=== PATIENT | male | born 1990 | race Caucasian/White ===

== ENCOUNTER 2016-12-19 22:46 | Inpatient (IN) ==
[2016-12-19 23:16] LABS: Basophils % 0.6 %; Eosinophils # 0.1 K/mcL (0.0-0.6); Eosinophils % 1.9 %; Hematocrit 43.9 % (37.5-50.1); Hemoglobin 14.9 g/dL (12.9-16.9); Immature Granulocytes % 0.3 % (0-4); Lymphocytes # 1.1 K/mcL (0.6-4.6); Lymphocytes % 16.6 %; Mean Corpuscular HGB Conc 33.9 g/dL (31.6-35.5); Mean Corpuscular Hemoglobin 27.3 pg (28.0-33.3); Mean Corpuscular Volume 80.6 fL (83.0-100.0); Mean Platelet Volume 9.7 fL (9.4-12.4); Monocytes # 0.4 K/mcL (0.0-1.3); Monocytes % 6.7 %; Neutrophils # 4.7 K/mcL (1.6-8.9); Platelet Count 254 K/mcL (140-400); Red Blood Count 5.45 M/mcL (4.19-5.50); Red Cell Distribution Width 12.1 % (11.5-14.5); Segmented Neutrophils % 73.9 %
[2016-12-19 23:27] LABS: Bilirubin,Urine Negative (Negative); Blood,Urine Negative (Negative); Clarity,Urine Clear (Clear); Color,Urine Yellow (Yellow); Glucose,Urine (UA) Normal (Normal); Ketones,Urine Negative (Negative); Leukocyte Esterase,Urine Negative (Negative); Nitrite,Urine Negative (Negative); PH,Urine 6.5 pH Units (5.0-8.0); Protein,Urine Negative (Neg-Trace); Specific Gravity,Urine 1.023 (1.010-1.025); Urobilinogen,Urine Normal (Normal)
[2016-12-19 23:29] LABS: Amphetamine Screen,Urine Negative ng/mL (Cutoff=1000); Barbiturate Screen,Urine Negative ng/mL (Cutoff=200); Benzodiazepines Screen,Urine Negative ng/mL (Cutoff=200); Cannabinoid Screen,Urine Negative ng/mL (Cutoff = 50); Cocaine Screen,Urine Negative ng/mL (Cutoff= 300); Opiate Screen,Urine Negative ng/mL (Cutoff=300); Phencyclidine Screen,Urine Negative ng/mL (Cutoff=25)
[2016-12-19 23:30] LABS: Acetaminophen < 1.0 mcg/mL (10-30); BUN/Creatinine Ratio 15 (6-26); Blood Urea Nitrogen 14 mg/dL (8-26); Calcium 9.2 mg/dL (8.6-10.8); Carbon Dioxide 27 mEq/L (19-29); Chloride 103 mEq/L (98-109); Ethanol < 10 mg/dL (0-10); Glucose 146 mg/dL (70-99); Osmolality,Calculated 291 (280-300); Potassium 4.1 mEq/L (3.5-4.5); Salicylate < 5.0 mg/dL (15-30); Sodium 139 mEq/L (136-145); eGFR For African Americans > 60 (> 60); eGFR For Non-African Americans > 60 (> 60)
--- NOTE | 2016-12-19 23:36 | Emergency Department Note ---
Disposition Clinical Impression: Suicidal ideation Disposition: Admitted As Inpatient Condition: Good Time of Disposition: 01:31 General Adult HPI - General Chief complaint: ED Psychiatric Symptoms Stated complaint: "SI" Time Seen by Provider: 12/19/16 23:07 Source: patient Limitations: no limitations Nursing Notes Reviewed: Yes Vital Signs Reviewed: Yes - History of Present Illness HPI Narrative: Five-month history of increase in depression. No been superficially cutting the inside portions of his upper extremities. Suicidal ideation with no plan. No homicidal ideation. No hallucinations. Pain Scale: 0 - Related Data Allergies Allergy/AdvReac Type Severity Reaction Status Date / Time No Known Allergies Allergy Verified 12/19/16 22:48 All systems ED: reviewed and negative except as stated. Constitutional: Denies: fever, chills, weight change Eyes: Denies: eye pain, vision change ENT ED: Denies: throat pain, congestion, dysphagia Cardiovascular: Denies: chest pain, syncope Respiratory: Denies: cough, dyspnea Gastrointestinal: Denies: abdominal pain, nausea, vomiting, diarrhea, hematemesis, melena, hematochezia Genitourinary: Denies: urgency, dysuria, frequency, hematuria Musculoskeletal: Denies: back pain, neck pain Integumentary: Denies: rash Neurological: Denies: headache, weakness, numbness Psychiatric: Reports: depression (for 5 months), suicidal thoughts, other (Self- harm to medial aspects of upper arms.). Denies: anxiety, homicidal thoughts, auditory hallucinations, visual hallucinations Past Medical History - Past Medical History Attestation: Yes The following information was validated with the patient. Medical history: Reports: no medical history Psychiatric history: Reports: depression - Social History Smoking Status: Current every day smoker Smokeless Tobacco Status: No Alcohol use: Reports: none Drug use: Reports: none Physical Exam - General Limitations: no limitations General appearance: alert, in no apparent distress - Head Head exam: atraumatic, normocephalic, normal inspection - Eye Eye exam: Present: normal appearance, PERRL, EOMI - ENT ENT exam: normal exam, normal oropharynx, mucous membranes moist, normal external ear exam - Neck Neck exam: Present: normal inspection, full ROM, trachea midline. Absent: tenderness, meningismus, lymphadenopathy - Chest Chest inspection: Present: normal inspection, symmetric chest wall rise. Absent : tenderness, rash - Respiratory Respiratory exam: Present: normal lung sounds bilaterally. Absent: respiratory distress - Cardiovascular Cardiovascular exam: Present: regular rate, normal rhythm, normal heart sounds - Abdominal Exam Abdominal exam: Present: soft, Non-Tender, normal bowel sounds. Absent: tenderness, distention, guarding, rebound, rigidity, organomegaly - Extremities Exam Extremities exam: Present: full ROM, normal capillary refill. Absent: tenderness, pedal edema - Expanded Upper Extremity Exam Shoulder exam: Present: normal inspection, full ROM Arm exam: Present: full ROM, abrasion (Possible superficial abrasions to the inner aspects of both biceps). Absent: tenderness, swelling, ecchymosis, deformity, crepitus, erythema Elbow exam: Present: normal inspection, full ROM Forearm/Wrist exam: Present: normal inspection, full ROM Hand exam: Present: normal inspection, full ROM Vascular exam: Normal: capillary refill, radial pulse - Expanded Lower Extremity Exam Hip/Pelvis exam: Present: normal inspection, full ROM Upper leg exam: Present: normal inspection, full ROM Knee exam: Present: normal inspection, full ROM Lower leg exam: Present: normal inspection, full ROM Ankle exam: Present: normal inspection, full ROM Foot/toe exam: Present: normal inspection, full ROM Neurovascular/Tendon exam: Absent: motor deficit, sensory deficit, tendon deficit - Back Exam Back exam: Present: normal inspection, full ROM. Absent: tenderness, CVA tenderness (R), CVA tenderness (L) - Neurological Exam Neurological exam: Present: alert, oriented X3, normal gait - Psychiatric Psychiatric exam: Present: normal affect, normal mood, suicidal ideation. Absent: homicidal ideation - Skin Skin exam: Present: warm, dry, intact, normal color. Absent: rash Course Course Narrative: Well-appearing male patient presenting to the emergency department with suicidal ideations. He states that he has no SI or HI right now there has been no hallucinations visual or audible. He has been depressed before but has never been treated for this. He states this. Is been going on for 5 months that he has been more depressed and sad than normal. He states he has been doing self-harm and shows me the insides of his arms bilaterally. On his biceps he has several superficial cuts. They are all well-healed none appear infected. There is no erythema or warmth to the area. They are all scabbed over. He denies these on any other part of his body. He states he has been doing self-harm to relieve the depression. When asked if he had suicidal ideation he said he did prior to arrival here. He also states that he did not have a plan however he would do it however he needed to. He has no medical complaints at this time. We will do basic lab workup and consult 1A. - Reevaluation(s) Reevaluation #1: 1 A recommendation is to admit the patient. - Consultations Consultation #1: 1 A is admitting Pt. Time: 01:15 Vital Signs Temperature 97.5 F L 12/19/16 22:49 Pulse Rate 104 12/19/16 22:49 Respiratory Rate 16 12/19/16 22:49 Blood Pressure 168/97 12/19/16 22:49 O2 Sat by Pulse Oximetry 100 12/19/16 22:49 Temperature 98.7 F 12/20/16 02:49 Pulse Rate 87 12/20/16 02:49 Respiratory Rate 18 12/20/16 02:49 Blood Pressure 137/86 12/20/16 02:49 O2 Sat by Pulse Oximetry 98 12/19/16 23:12 Oxygen Delivery Oxygen Delivery Room Air Medical Decision Making - Lab Data Result diagrams: 12/19/16 23:04 12/19/16 23:04 Lab Results 12/19/16 12/19/16 12/19/16 Range/Units 23:04 23:04 23:17 WBC 6.4 (4.3-11.1) K/mcL RBC 5.45 (4.19-5.50) M/mcL Hgb 14.9 (12.9-16.9) g/dL Hct 43.9 (37.5-50.1) % MCV 80.6 L (83.0-100.0) fL MCH 27.3 L (28.0-33.3) pg MCHC 33.9 (31.6-35.5) g/dL RDW 12.1 (11.5-14.5) % Plt Count 254 (140-400) K/mcL MPV 9.7 (9.4-12.4) fL Immature Gran % 0.3 (0-4) % Seg Neutrophils % 73.9 % Lymphocytes % 16.6 % Monocytes % 6.7 % Eosinophils % 1.9 % Basophils % 0.6 % Neutrophils # 4.7 (1.6-8.9) K/mcL Lymphocytes # 1.1 (0.6-4.6) K/mcL Monocytes # 0.4 (0.0-1.3) K/mcL Eosinophils # 0.1 (0.0-0.6) K/mcL Basophils # 0.0 (0.0-0.2) K/mcL Sodium 139 (136-145) mEq/L Potassium 4.1 (3.5-4.5) mEq/L Chloride 103 (98-109) mEq/L Carbon Dioxide 27 (19-29) mEq/L BUN 14 (8-26) mg/dL Creatinine 0.94 (0.72-1.25) mg/dL Est GFR ( Amer) > 60 (> 60) Est GFR (Non-Af Amer) > 60 (> 60) BUN/Creatinine Ratio 15 (6-26) Glucose 146 H (70-99) mg/dL Calculated Osmolality 291 (280-300) Calcium 9.2 (8.6-10.8) mg/dL Urine Color Yellow (Yellow) Urine Clarity Clear (Clear) Urine pH 6.5 (5.0-8.0) pH Units Ur Specific [place] 1.023 (1.010-1.025) Urine Protein Negative (Neg-Trace) mg/dL Urine Glucose (UA) Normal (Normal) mg/dL Urine Ketones Negative (Negative) mg/dL Urine Blood Negative (Negative) Urine Nitrite Negative (Negative) Urine Bilirubin Negative (Negative) Urine Urobilinogen Normal (Normal) mg/dL Ur Leukocyte Esterase Negative (Negative) Salicylates < 5.0 L (15-30) mg/dL Urine Opiates Screen (Okvrix=878) ng/mL Acetaminophen < 1.0 L (10-30) mcg/mL Ur Barbiturates Screen (Nkcsau=801) ng/mL Ur Phencyclidine Scrn (Cutoff=25) ng/mL Ur Amphetamines Screen (Zcuhjc=4884) ng/mL U Benzodiazepines Scrn (Vmhhax=874) ng/mL Urine Cocaine Screen (Cutoff= 300) ng/mL U Marijuana (THC) Screen (Cutoff = 50) ng/mL Ethyl Alcohol < 10 (0-10) mg/dL 12/19/16 Range/Units 23:17 WBC (4.3-11.1) K/mcL RBC (4.19-5.50) M/mcL Hgb (12.9-16.9) g/dL Hct (37.5-50.1) % MCV (83.0-100.0) fL MCH (28.0-33.3) pg MCHC (31.6-35.5) g/dL RDW (11.5-14.5) % Plt Count (140-400) K/mcL MPV (9.4-12.4) fL Immature Gran % (0-4) % Seg Neutrophils % % Lymphocytes % % Monocytes % % Eosinophils % % Basophils % % Neutrophils # (1.6-8.9) K/mcL Lymphocytes # (0.6-4.6) K/mcL Monocytes # (0.0-1.3) K/mcL Eosinophils # (0.0-0.6) K/mcL Basophils # (0.0-0.2) K/mcL Sodium (136-145) mEq/L Potassium (3.5-4.5) mEq/L Chloride (98-109) mEq/L Carbon Dioxide (19-29) mEq/L BUN (8-26) mg/dL Creatinine (0.72-1.25) mg/dL Est GFR ( Amer) (> 60) Est GFR (Non-Af Amer) (> 60) BUN/Creatinine Ratio (6-26) Glucose (70-99) mg/dL Calculated Osmolality (280-300) Calcium (8.6-10.8) mg/dL Urine Color (Yellow) Urine Clarity (Clear) Urine pH (5.0-8.0) pH Units Ur Specific [place] (1.010-1.025) Urine Protein (Neg-Trace) mg/dL Urine Glucose (UA) (Normal) mg/dL Urine Ketones (Negative) mg/dL Urine Blood (Negative) Urine Nitrite (Negative) Urine Bilirubin (Negative) Urine Urobilinogen (Normal) mg/dL Ur Leukocyte Esterase (Negative) Salicylates (15-30) mg/dL Urine Opiates Screen Negative (Ohedbr=964) ng/mL Acetaminophen (10-30) mcg/mL Ur Barbiturates Screen Negative (Guafry=339) ng/mL Ur Phencyclidine Scrn Negative (Cutoff=25) ng/mL Ur Amphetamines Screen Negative (Ywiqfn=0152) ng/mL U Benzodiazepines Scrn Negative (Xesukj=865) ng/mL Urine Cocaine Screen Negative (Cutoff= 300) ng/mL U Marijuana (THC) Screen Negative (Cutoff = 50) ng/mL Ethyl Alcohol (0-10) mg/dL Attestation Statement - Attestation Attestation: I personally interviewed and examined this patient and my medical decision- making was reviewed with the ED Resident Physician, Dr. Marcano. I agree with the documented findings, disposition and treatment plan as described in the documentation. Patient is a 26-year-old white male who presents to the emergency department this evening with suicidal thoughts. Patient has no prior history of diagnosed depression, no prior psychiatric hospitalizations or outpatient therapy, and not on any psychiatric medications. Patient states that he has been having gradually worsening depression past 3-4 months with no specific inciting incident. Patient began cutting himself for relief of his stress over the past week and has multiple superficial abrasions noted to the bilateral upper arms. Patient's never done anything to harm himself in the past. Patient states due to increased stress and worsening depression he is having more frequent suicidal thoughts but no specific plan. Patient denies any medical history and no medications at this time. Patient denies any history of substance abuse. Patient is awake alert and oriented in no acute distress resting comfortably at bedside with stable vital signs. Heart regular rate and rhythm lungs are clear to auscultation bilaterally abdomen is soft nontender nondistended positive bowel sounds is no sinus or edema skin is warm and dry rash or petechiae noted psych patient has appropriate mood and affect at bedside is cooperative with exam and history. Patient does express suicidal thoughts but denies any homicidal ideation, no delusions or hallucinations. Patient's girlfriend is at bedside. At this time we obtained labs for psychiatric evaluation and have contacted the psych nurse to come and do an assessment of the patient. Patient was placed on suicidal precautions. Patient admitted for further psychiatric evaluation and treatment, medically cleared for admission
[2016-12-20] MEDS ORDERED: Nicotine 7 MG PATCH.TD24 TD SCH ×2 (01:30→09:00)
[2016-12-20] MEDS ORDERED: *HR* LORazepam 2 MG/ML VIAL IM PRN (01:50)
[2016-12-20] MEDS ORDERED: Acetaminophen 325 MG TABLET PO PRN (01:50)
[2016-12-20] MEDS ORDERED: Haloperidol Lactate 5 MG/ML VIAL IM PRN (01:50)
[2016-12-20] MEDS ORDERED: traZODone 50 MG TABLET PO PRN (01:50)
[2016-12-20] MEDS ORDERED: Mag Hydrox/Al Hydrox/Simeth 30 ML UDC PO PRN (01:50)
[2016-12-20] MEDS ORDERED: *HR* LORazepam 1 MG TABLET PO PRN (01:50)
[2016-12-20] MEDS ORDERED: hydrOXYzine pamoate 25 MG CAPSULE PO PRN (01:50)
[2016-12-20] MEDS ORDERED: MOM Conc 10 ML UD.LIQ PO PRN (01:50)
[2016-12-20] MEDS: Nicotine 7 MG PATCH.TD24 TD SCH (09:00)
--- NOTE | 2016-12-20 09:50 | Psychiatry History & Physical ---
Date of Encounter: 12/20/16 Time of Encounter: 09:43 History of Present Illness Patient Stated Chief Complaint: Depressed and suicidal Medicare Admission Attestation: For traditional Medicare patients the provided hospital inpatient services are reasonable and necessary and in the case of services not specified as inpatient -only under 42 CFR 419.22 (n), that they are appropriately provided as inpatient services in accordance 42 CFR 412.3. For Critical [facility] the patient may reasonably be expected to be discharged or transferred to a hospital within 96 hours after admission to the Critical [facility]. Admitted From: Emergency Dept History of Present Illness: Mr. Garcia is a 26 year old male admitted from the emergency department for depression and suicidal ideation. Patient stated that he has been experiencing increasing depression for the last 5 months including low energy , crying episodes, feeling of hopelessness and helplessness and suicidal ideation. Patient had no previous treatment for depression or any mental health issues and he is not taking any medication. 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 He denies any substance abuse are "drugs he does not smoke cigarettes and consumes caffeine. He reports occasional self mutilating behavior where he cut himself on the upper arm on both sides and this has been happening for the last few months. Past Med Surg Social Fam HX - Past Medical History Medical history: no medical history - Past Psychiatric History Psychiatric history: Reports: no psych history Family psychiatric history: Unknown Family History of Suicide: Unknown - Past Surgical History Surgical History: no surgical history - Social History Smoking Status: Current every day smoker Smokeless Tobacco Status: No Alcohol use: none Drug use: none Medications & Allergies No Known Home Drugs 12/20/16 [History] Allergies No Known Allergies Allergy (Verified 12/19/16 22:48) Review of Systems Psychiatric: Reports: depression, abnormal sleep pattern, suicidal ideation, hopelessness Mental Status Exam Patient orientation: Yes Person, Yes Time, Yes Place Level of alertness: Alert Patient appearance: Appropriate, Well Groomed Behavior: calm, cooperative, anxious, guarded Psychomotor activity: Normal Eye contact: Maintains Eye Contact Mood description: Depressed, Anxious Affect description: constricted Speech pattern: Normal rate, Normal rhythm, Normal tone Speech volume: Normal Thought process: Linear, Goal Oriented Thought content: Yes Suicidal ideation, No Homicidal ideation, No Overt delusions Perceptual disturbances: No Auditory hallucinations, No Visual hallucinations Attention span: Capable of Focused Attention Memory description: Grossly Intact Patient reliability: Reliable Historian Intelligence estimate: Average Judgment: Limited Insight: Partial Results - Vital Signs Vital signs: Temp Pulse Resp BP Pulse Ox 97.5 F L 94 16 126/84 98 12/20/16 09:00 12/20/16 09:00 12/20/16 09:00 12/20/16 09:00 12/19/16 23:12 - Labs Labs: Laboratory Last Values WBC 6.4 K/mcL (4.3-11.1) 12/19/16 23:04 RBC 5.45 M/mcL (4.19-5.50) 12/19/16 23:04 Hgb 14.9 g/dL (12.9-16.9) 12/19/16 23:04 Hct 43.9 % (37.5-50.1) 12/19/16 23:04 MCV 80.6 fL (83.0-100.0) L 12/19/16 23:04 MCH 27.3 pg (28.0-33.3) L 12/19/16 23:04 MCHC 33.9 g/dL (31.6-35.5) 12/19/16 23:04 RDW 12.1 % (11.5-14.5) 12/19/16 23:04 Plt Count 254 K/mcL (140-400) 12/19/16 23:04 MPV 9.7 fL (9.4-12.4) 12/19/16 23:04 Immature Gran % 0.3 % (0-4) 12/19/16 23:04 Seg Neutrophils % 73.9 % 12/19/16 23:04 Lymphocytes % 16.6 % 12/19/16 23:04 Monocytes % 6.7 % 12/19/16 23:04 Eosinophils % 1.9 % 12/19/16 23:04 Basophils % 0.6 % 12/19/16 23:04 Neutrophils # 4.7 K/mcL (1.6-8.9) 12/19/16 23:04 Lymphocytes # 1.1 K/mcL (0.6-4.6) 12/19/16 23:04 Monocytes # 0.4 K/mcL (0.0-1.3) 12/19/16 23:04 Eosinophils # 0.1 K/mcL (0.0-0.6) 12/19/16 23:04 Basophils # 0.0 K/mcL (0.0-0.2) 12/19/16 23:04 Sodium 139 mEq/L (136-145) 12/19/16 23:04 Potassium 4.1 mEq/L (3.5-4.5) 12/19/16 23:04 Chloride 103 mEq/L (98-109) 12/19/16 23:04 Carbon Dioxide 27 mEq/L (19-29) 12/19/16 23:04 BUN 14 mg/dL (8-26) 12/19/16 23:04 Creatinine 0.94 mg/dL (0.72-1.25) 12/19/16 23:04 Est GFR ( Amer) > 60 (> 60) 12/19/16 23:04 Est GFR (Non-Af Amer) > 60 (> 60) 12/19/16 23:04 BUN/Creatinine Ratio 15 (6-26) 12/19/16 23:04 Glucose 146 mg/dL (70-99) H 12/19/16 23:04 Calculated Osmolality 291 (280-300) 12/19/16 23:04 Calcium 9.2 mg/dL (8.6-10.8) 12/19/16 23:04 Urine Color Yellow (Yellow) 12/19/16 23: Urine Clarity Clear (Clear) 12/19/16 23:17 Urine pH 6.5 pH Units (5.0-8.0) 12/19/16 23:17 Ur Specific [place] 1.023 (1.010-1.025) 12/19/16 23:17 Urine Protein Negative mg/dL (Neg-Trace) 12/19/16 23:17 Urine Glucose (UA) Normal mg/dL (Normal) 12/19/16 23:17 Urine Ketones Negative mg/dL (Negative) 12/19/16 23: Urine Blood Negative (Negative) 12/19/16 23:17 Urine Nitrite Negative (Negative) 12/19/16 23:17 Urine Bilirubin Negative (Negative) 12/19/16 23:17 Urine Urobilinogen Normal mg/dL (Normal) 12/19/16 23:17 Ur Leukocyte Esterase Negative (Negative) 12/19/16 23:17 Salicylates < 5.0 mg/dL (15-30) L 12/19/16 23:04 Urine Opiates Screen Negative ng/mL (Lwdnug=072) 12/19/16 23:17 Acetaminophen < 1.0 mcg/mL (10-30) L 12/19/16 23:04 Ur Barbiturates Screen Negative ng/mL (Dzvcww=103) 12/19/16 23:17 Ur Phencyclidine Scrn Negative ng/mL (Cutoff=25) 12/19/16 23:17 Ur Amphetamines Screen Negative ng/mL (Pdkueo=0081) 12/19/16 23:17 U Benzodiazepines Scrn Negative ng/mL (Xlfevg=023) 12/19/16 23:17 Urine Cocaine Screen Negative ng/mL (Cutoff= 300) 12/19/16 23:17 U Marijuana (THC) Screen Negative ng/mL (Cutoff = 50) 12/19/16 23:17 Ethyl Alcohol < 10 mg/dL (0-10) 12/19/16 23:04 Assessment and Plan (1) Depression, major, single episode, moderate Current visit: Yes Status: Acute Plan: Admit inpatient for safety and stabilization, Close observation, Suicide Precautions per unit protocol, Encourage participation in unit milieu, Group Therapy, Monitor sleep, Monitor appetite Additional Plan: We will start patient on Effexor XR 75 mg daily benefits and side effects were discussed patient is agreeable to start treatment. Risks, benefits, side effects, alternatives discussed w/pt: Yes Patient agreeable to treatment: Yes Estimated Length of Stay (Days): 5
[2016-12-20] MEDS: Venlafaxine XR (24 HR) 75 MG CAP.ER.24H PO SCH (11:06)
[2016-12-20] MEDS ORDERED: Ondansetron 4 MG/2 ML VIAL IM ONE (19:02)
[2016-12-21] MEDS: Nicotine 7 MG PATCH.TD24 TD SCH (08:24)
--- NOTE | 2016-12-21 11:32 | Psychiatry Progress Note ---
Date of Encounter: 12/21/16 Time of Encounter: 11:00 Subjective Interval history: Patient is here for follow-up. He had an episode yesterday of nausea and vomiting and Effexor was held. today he Tell me that his symptoms are related to breakfast not the medicine. Otherwise she slept well ,he is participating in groups and activities and denies any suicidal thoughts and is interested in going back on the Effexor. Review of Systems Psychiatric: Reports: depression, abnormal sleep pattern, suicidal ideation, hopelessness Objective: Exam Patient orientation: Yes Person, Yes Time, Yes Place Level of alertness: Alert Patient appearance: Appropriate, Well Groomed Behavior: calm, cooperative, anxious, guarded Psychomotor activity: Normal Eye contact: Maintains Eye Contact Mood description: Depressed, Anxious Affect description: constricted Speech pattern: Normal rate, Normal rhythm, Normal tone Speech volume: Normal Thought process: Linear, Goal Oriented Thought content: Yes Suicidal ideation, No Homicidal ideation, No Overt delusions Perceptual disturbances: No Auditory hallucinations, No Visual hallucinations Judgment: Limited Insight: Partial Results - Vital Signs Vital Signs: Temp Pulse Resp BP Pulse Ox 98.2 F 96 16 144/96 98 12/21/16 09:00 12/21/16 09:00 12/21/16 09:00 12/21/16 09:00 12/19/16 23:12 Assessment and Plan (1) Depression, major, single episode, moderate Current visit: Yes Status: Acute Plan: Continue hospitalization, Close observation, Suicide Precautions per unit protocol, Encourage participation in unit milieu, Group Therapy, Monitor sleep, Monitor appetite Risks, benefits, side effects, alternatives discussed w/pt: Yes Patient agreeable to treatment: Yes Consult Discharge Plan - Plan Referrals: NO,PCP [Primary Care Provider] -
[2016-12-22] MEDS: Nicotine 7 MG PATCH.TD24 TD SCH (08:52)
[2016-12-22] MEDS: Venlafaxine XR (24 HR) 75 MG CAP.ER.24H PO SCH (08:52)
[2016-12-22 09:29] VITALS: BP 131/86
--- NOTE | 2016-12-22 11:28 | Discharge Summary ---
Date of Encounter: 12/22/16 Time of Encounter: 11:00 Diagnosis - Discharge Diagnosis (1) Depression, major, single episode, moderate Status: Acute Medications - Discharge Medications Prescriptions: Venlafaxine XR (24 HR) [Effexor XR] 75 mg PO DAILY #30 cap.er.24h Venlafaxine XR (24 HR) [Effexor XR] 75 mg PO DAILY #30 cap.er.24h 12/22/16 [Rx] Allergies No Known Allergies Allergy (Verified 12/19/16 22:48) Provider Date of admission: 12/20/16 01:31 Primary care physician: PCP NO Discharging clinician: Jose Mancera Assessment and Plan - Patient/Caregiver Discharge Instructions Activity: resume usual activities as tolerated Diet: regular diet - Follow up Plan Follow up with: [facility] [Outside] - 12/25/16 2:30 pm (The above appointment is with Dr. Vaughn. The counselor in the office, Melina, will contact you directly to set up an appointment.) Functional capacity at discharge: independent ambulation Overall status at discharge: Stable Disposition: Home, Self-Care Hospital Course Hospital course: Mr. Garcia is a 26 year old male admitted from the emergency room for depression and suicidal ideation, this is the first psychiatric admission for this patient. Details of admission please see H&P On the units patient was evaluated and started on Effexor XR 75 mg. He tolerated the medication and denied any side effects, he participated in group activities and his discharge plans were completed by the social sciences professor to allow for therapy and medication follow-up. Prior to discharge patient was medically stable, denied any suicidal ideation and forward to attend therapy with his . - Time Spent with Patient Total time spent providing and/or coordinating discharge services: Greater than 30 minutes Quality - Multiple Antipsychotics Patient discharged on 2 or more antipsychotic medications: No Procedures - Procedures Procedures: Medication Management, Crisis Stabilization, Supportive Therapy, Group Therapy, Psychoeducational Therapy Mental Status Exam - Mental Status Exam Patient orientation: Yes Person, Yes Time, Yes Place Level of alertness: Alert Patient appearance: Appropriate, Well Groomed Behavior: calm, cooperative, anxious, guarded Psychomotor activity: Normal Eye contact: Maintains Eye Contact Mood description: Euthymic/stable, Anxious Affect description: congruent with mood, constricted Speech pattern: Normal rate, Normal rhythm, Normal tone Speech Volume: Normal Thought process: Linear, Goal Oriented Thought Content: No Suicidal ideation, No Homicidal ideation, No Overt delusions Perceptual Disturbances: No Auditory hallucinations, No Visual hallucinations Judgment: Limited Insight: Partial
== END 2016-12-22 15:15 | disposition home or self-care (01) | DRG 751 ==
LOC: EMEROO 22:46 → 1ANU 12-20 01:31
PROVIDERS: ADMIT Psychiatry & Neurology Psychiatry; ATTEND Psychiatry & Neurology Psychiatry

== ENCOUNTER 2017-09-07 08:35 | Observation (INO) ==
[2017-09-07 09:03] LABS: Bilirubin,Urine Negative (Negative); Blood,Urine Negative (Negative); Clarity,Urine Clear (Clear); Color,Urine Yellow (Yellow); Glucose,Urine (UA) Normal (Normal); Ketones,Urine Negative (Negative); Leukocyte Esterase,Urine Negative (Negative); Nitrite,Urine Negative (Negative); PH,Urine 6.5 pH Units (5.0-8.0); Protein,Urine Negative (Neg-Trace); Specific Gravity,Urine > 1.030 (1.010-1.025); Urobilinogen,Urine Normal (Normal)
--- NOTE | 2017-09-07 09:10 | Emergency Department Note ---
Disposition Clinical Impression: Upper GI bleed Disposition: Admitted As Inpatient Condition: Fair General Adult HPI - General Chief complaint: ED Nausea/Vomiting/Diarrhea Stated complaint: vomiting blood Time Seen by Provider: 09/07/17 09:04 Source: patient Limitations: no limitations - History of Present Illness Pain Scale: 4 - Related Data Home Medications Medication Instructions Recorded Confirmed Venlafaxine XR (24 HR) [Effexor XR] 225 mg PO DAILY 06/22/17 09/07/17 Allergies Allergy/AdvReac Type Severity Reaction Status Date / Time No Known Allergies Allergy Verified 09/07/17 10:44 Past Medical History - Past Medical History Medical history: Reports: asthma Surgical history: Reports: no surgical history Psychiatric history: Reports: anxiety, depression - Social History Smoking Status: Former smoker Smokeless Tobacco Status: Yes Alcohol use: Reports: rarely Drug use: Reports: none Physical Exam - General Limitations: no limitations General appearance: alert Course Vital Signs Temperature 98.3 F 09/07/17 08:42 Pulse Rate 125 09/07/17 08:42 Respiratory Rate 16 09/07/17 08:42 Blood Pressure 110/82 09/07/17 08:42 O2 Sat by Pulse Oximetry 98 09/07/17 08:42 Temperature 97.9 F 09/07/17 15:31 Pulse Rate 101 09/07/17 15:31 Respiratory Rate 18 09/07/17 15:31 Blood Pressure 115/67 09/07/17 15:31 O2 Sat by Pulse Oximetry 99 09/07/17 15:31 Oxygen Delivery Oxygen Delivery Room Air Medical Decision Making - Lab Data Result diagrams: 09/07/17 09:25 09/07/17 09:25 Lab Results 09/07/17 09/07/17 09/07/17 Range/Units 08:55 09:21 09:25 WBC 7.9 (4.3-11.1) K/mcL RBC 4.58 (4.19-5.50) M/mcL Hgb 12.8 L (12.9-16.9) g/dL Hct 36.7 L (37.5-50.1) % MCV 80.1 L (83.0-100.0) fL MCH 27.9 L (28.0-33.3) pg MCHC 34.9 (31.6-35.5) g/dL RDW 12.8 (11.5-14.5) % Plt Count 260 (140-400) K/mcL MPV 9.5 (9.4-12.4) fL Immature Gran % 0.4 (0-4) % Seg Neutrophils % 70.2 % Lymphocytes % 19.3 % Monocytes % 8.7 % Eosinophils % 1.0 % Basophils % 0.4 % Neutrophils # 5.6 (1.6-8.9) K/mcL Lymphocytes # 1.5 (0.6-4.6) K/mcL Monocytes # 0.7 (0.0-1.3) K/mcL Eosinophils # 0.1 (0.0-0.6) K/mcL Basophils # 0.0 (0.0-0.2) K/mcL PT (9.4-12.1) Seconds INR APTT (26.0-36.0) Seconds Sodium (136-145) mEq/L Potassium (3.5-4.5) mEq/L Chloride (98-109) mEq/L Carbon Dioxide (19-29) mEq/L BUN (8-26) mg/dL Creatinine (0.72-1.25) mg/dL Est GFR ( Amer) (> 60) Est GFR (Non-Af Amer) (> 60) BUN/Creatinine Ratio (6-26) Glucose (70-99) mg/dL Calculated Osmolality (280-300) Lactic Acid (0.5-2.2) mmol/L Calcium (8.6-10.8) mg/dL Total Bilirubin (0.2-1.2) mg/dL AST (5-34) Units/L ALT (0-55) Units/L Alkaline Phosphatase (38-126) Units/L Serum Total Protein (6.0-8.3) g/dL Albumin (3.5-5.0) g/dL Globulin (2.4-3.5) g/dL Albumin/Globulin Ratio (1.1-2.2) Lipase (8-78) Units/L Urine Color Yellow (Yellow) Urine Clarity Clear (Clear) Urine pH 6.5 (5.0-8.0) pH Units Ur Specific [place] > 1.030 H (1.010-1.025) Urine Protein Negative (Neg-Trace) mg/dL Urine Glucose (UA) Normal (Normal) mg/dL Urine Ketones Negative (Negative) mg/dL Urine Blood Negative (Negative) Urine Nitrite Negative (Negative) Urine Bilirubin Negative (Negative) Urine Urobilinogen Normal (Normal) mg/dL Ur Leukocyte Esterase Negative (Negative) Ur Culture Indicated? NO (NO) Stool Occult Blood Negative (Negative) Blood Type Antibody Screen 09/07/17 09/07/17 09/07/17 Range/Units 09:25 09:25 09:25 WBC (4.3-11.1) K/mcL RBC (4.19-5.50) M/mcL Hgb (12.9-16.9) g/dL Hct (37.5-50.1) % MCV (83.0-100.0) fL MCH (28.0-33.3) pg MCHC (31.6-35.5) g/dL RDW (11.5-14.5) % Plt Count (140-400) K/mcL MPV (9.4-12.4) fL Immature Gran % (0-4) % Seg Neutrophils % % Lymphocytes % % Monocytes % % Eosinophils % % Basophils % % Neutrophils # (1.6-8.9) K/mcL Lymphocytes # (0.6-4.6) K/mcL Monocytes # (0.0-1.3) K/mcL Eosinophils # (0.0-0.6) K/mcL Basophils # (0.0-0.2) K/mcL PT 12.4 H (9.4-12.1) Seconds INR 1.1 APTT 23.5 L (26.0-36.0) Seconds Sodium 140 (136-145) mEq/L Potassium 4.0 (3.5-4.5) mEq/L Chloride 105 (98-109) mEq/L Carbon Dioxide 29 (19-29) mEq/L BUN 41 H (8-26) mg/dL Creatinine 0.84 (0.72-1.25) mg/dL Est GFR ( Amer) > 60 (> 60) Est GFR (Non-Af Amer) > 60 (> 60) BUN/Creatinine Ratio 49 H (6-26) Glucose 100 H (70-99) mg/dL Calculated Osmolality 300 (280-300) Lactic Acid 1.3 (0.5-2.2) mmol/L Calcium 8.7 (8.6-10.8) mg/dL Total Bilirubin 0.6 (0.2-1.2) mg/dL AST 12 (5-34) Units/L ALT 11 (0-55) Units/L Alkaline Phosphatase 38 (38-126) Units/L Serum Total Protein 6.7 (6.0-8.3) g/dL Albumin 3.8 (3.5-5.0) g/dL Globulin 2.9 (2.4-3.5) g/dL Albumin/Globulin Ratio 1.3 (1.1-2.2) Lipase 20 (8-78) Units/L Urine Color (Yellow) Urine Clarity (Clear) Urine pH (5.0-8.0) pH Units Ur Specific [place] (1.010-1.025) Urine Protein (Neg-Trace) mg/dL Urine Glucose (UA) (Normal) mg/dL Urine Ketones (Negative) mg/dL Urine Blood (Negative) Urine Nitrite (Negative) Urine Bilirubin (Negative) Urine Urobilinogen (Normal) mg/dL Ur Leukocyte Esterase (Negative) Ur Culture Indicated? (NO) Stool Occult Blood (Negative) Blood Type Antibody Screen 09/07/17 Range/Units 09:25 WBC (4.3-11.1) K/mcL RBC (4.19-5.50) M/mcL Hgb (12.9-16.9) g/dL Hct (37.5-50.1) % MCV (83.0-100.0) fL MCH (28.0-33.3) pg MCHC (31.6-35.5) g/dL RDW (11.5-14.5) % Plt Count (140-400) K/mcL MPV (9.4-12.4) fL Immature Gran % (0-4) % Seg Neutrophils % % Lymphocytes % % Monocytes % % Eosinophils % % Basophils % % Neutrophils # (1.6-8.9) K/mcL Lymphocytes # (0.6-4.6) K/mcL Monocytes # (0.0-1.3) K/mcL Eosinophils # (0.0-0.6) K/mcL Basophils # (0.0-0.2) K/mcL PT (9.4-12.1) Seconds INR APTT (26.0-36.0) Seconds Sodium (136-145) mEq/L Potassium (3.5-4.5) mEq/L Chloride (98-109) mEq/L Carbon Dioxide (19-29) mEq/L BUN (8-26) mg/dL Creatinine (0.72-1.25) mg/dL Est GFR ( Amer) (> 60) Est GFR (Non-Af Amer) (> 60) BUN/Creatinine Ratio (6-26) Glucose (70-99) mg/dL Calculated Osmolality (280-300) Lactic Acid (0.5-2.2) mmol/L Calcium (8.6-10.8) mg/dL Total Bilirubin (0.2-1.2) mg/dL AST (5-34) Units/L ALT (0-55) Units/L Alkaline Phosphatase (38-126) Units/L Serum Total Protein (6.0-8.3) g/dL Albumin (3.5-5.0) g/dL Globulin (2.4-3.5) g/dL Albumin/Globulin Ratio (1.1-2.2) Lipase (8-78) Units/L Urine Color (Yellow) Urine Clarity (Clear) Urine pH (5.0-8.0) pH Units Ur Specific [place] (1.010-1.025) Urine Protein (Neg-Trace) mg/dL Urine Glucose (UA) (Normal) mg/dL Urine Ketones (Negative) mg/dL Urine Blood (Negative) Urine Nitrite (Negative) Urine Bilirubin (Negative) Urine Urobilinogen (Normal) mg/dL Ur Leukocyte Esterase (Negative) Ur Culture Indicated? (NO) Stool Occult Blood (Negative) Blood Type A POSITIVE Antibody Screen NEGATIVE Attestation Statement - Attestation Attestation: I examined this patient and my medical decision-making was reviewed with the Resident Physician. I agree with the documented findings, disposition and treatment plan as described except to the extent set forth below. [id number] time provided Patient presents with nausea and vomiting. He did have an episode of hematemesis earlier today. He is tachycardic at triage but does not appear in any acute distress on exam
[2017-09-07] MEDS ORDERED: Pantoprazole 40 MG VIAL IVP ONE (09:12)
[2017-09-07] MEDS ORDERED: 0.9 % Sodium Chloride 1,000 ML IVC ONE (09:12)
--- NOTE | 2017-09-07 09:32 | Emergency Department Note ---
Disposition Clinical Impression: Upper GI bleed Disposition: Admitted As Inpatient Condition: Fair Referrals: Luly Kolb DO [Primary Care Provider] - Forms: ED Satisfaction Letter Time of Disposition: 10:36 General Adult HPI - General Chief complaint: ED Nausea/Vomiting/Diarrhea Stated complaint: vomiting blood Time Seen by Provider: 09/07/17 09:04 Source: patient Mode of arrival: ambulatory Limitations: no limitations Nursing Notes Reviewed: Yes Vital Signs Reviewed: Yes - History of Present Illness HPI Narrative: 27-year-old male presenting to emergency Department chief complaint of vomiting blood. Patient states for the past 2 days he has had mild abdominal pain and vomiting. He noticed last night in the shower that he was vomiting dark colored vomit and then he vomited a large blood clot. Patient denies any history of GI bleed. Patient denies any alcohol ingestion. He does state he uses a vaporizer. Patient denies excessive NSAID use. Patient denies fever, chest pain or shortness of breath. He is tachycardic in the room. Patient denies any significant past medical history. He does state last night he had a dark colored bowel movement as well. Pain Scale: 4 - Related Data Home Medications Medication Instructions Recorded Confirmed Venlafaxine XR (24 HR) [Effexor XR] 225 mg PO DAILY 06/22/17 06/22/17 Previous Rx's Medication Instructions Recorded Amoxicillin/Clavulanate [Augmentin] 875 mg PO BIDWM 10 Days tablet 06/23/17 Omeprazole [PriLOSEC] 20 mg PO DAILY #15 cap 06/23/17 predniSONE [PredniSONE] 40 mg PO DAILY #10 tablet 06/23/17 Allergies Allergy/AdvReac Type Severity Reaction Status Date / Time No Known Allergies Allergy Verified 12/19/16 22:48 All systems ED: reviewed and negative except as stated. Constitutional: Denies: fever, chills, weakness Eyes: Reports: as per HPI ENT ED: Reports: as per HPI Cardiovascular: Denies: chest pain, palpitations Respiratory: Denies: cough, dyspnea, wheezes Gastrointestinal: Reports: abdominal pain, nausea, vomiting, hematemesis, melena Genitourinary: Reports: as per HPI Musculoskeletal: Reports: as per HPI Integumentary: Denies: rash, abrasion, lesions Neurological: Reports: as per HPI Psychiatric: Reports: as per HPI Endocrine: Reports: as per HPI Hematological/Lymphatic: Reports: as per HPI Allergic/Immunologic: Reports: as per HPI Past Medical History - Past Medical History Attestation: Yes The following information was validated with the patient. Medical history: Reports: asthma Surgical history: Reports: no surgical history Psychiatric history: Reports: anxiety, depression - Social History Smoking Status: Former smoker Smokeless Tobacco Status: Yes Alcohol use: Reports: rarely Drug use: Reports: none Physical Exam - General Limitations: no limitations General appearance: alert, in no apparent distress - Head Head exam: atraumatic, normocephalic, normal inspection - Eye Eye exam: Present: normal appearance. Absent: scleral icterus, conjunctival injection - ENT ENT exam: normal exam, mucous membranes moist - Chest Chest inspection: Present: normal inspection, symmetric chest wall rise. Absent : tenderness, rash - Respiratory Respiratory exam: Present: normal lung sounds bilaterally. Absent: respiratory distress, wheezes - Cardiovascular Cardiovascular exam: Present: normal rhythm, tachycardia, normal heart sounds - Abdominal Exam Abdominal exam: Present: soft, Non-Tender, normal bowel sounds. Absent: distention, guarding, rebound, rigidity, Knapp's sign, Rovsing's sign, tenderness at McBurney's Point - Rectal Exam Rectal exam: Present: normal inspection, normal rectal tone. Absent: hemorrhoids, mass - Extremities Exam Extremities exam: Present: normal inspection, full ROM - Back Exam Back exam: Present: normal inspection - Neurological Exam Neurological exam: Present: alert, oriented X3 - Psychiatric Psychiatric exam: Present: normal affect, normal mood - Skin Skin exam: Present: warm, intact Course Course Narrative: 27-year-old male presenting to the emergency department with concern for GI bleed. Patient states he vomited a large blood clot this morning. Patient denies any history of varices or any excessive drinking. Patient also denies any NSAID use. Patient's physical exam shows tachycardia but otherwise within normal limits. Abdominal exam is benign. Patient's alert and oriented 3 in the room. He is stable beyond the tachycardia. We will obtain a GI bleed being workup including CBC, type and screen, EKG and stool occult. Disposition pending these results. Patient agrees this plan. - Reevaluation(s) Reevaluation #1: Patient stool occult Negative although the BUN is elevated and the hemoglobin is lower than in June and anemic now. Concern for upper GI bleed at this time. Patient was tachycardic upon presentation. Still tachycardic while receiving fluids with heart rate in the low 100s. I spoke with the hospitalist on-call Dr. Gar who would like us to also speak with the endoscopy on-call physician Dr. dudley to ensure possibility for emergent endoscopy if admitted. I spoke with Dr. Dudley who agrees to see the patient. I spoke with Dr. Gar again who agrees to accept the patient at this time. She would like us to place another large bore IV. We will do this at this time and admit the patient to the floor. Time: 10:36 Vital Signs Temperature 98.3 F 09/07/17 08:42 Pulse Rate 125 09/07/17 08:42 Respiratory Rate 16 09/07/17 08:42 Blood Pressure 110/82 09/07/17 08:42 O2 Sat by Pulse Oximetry 98 09/07/17 08:42 Temperature 98.3 F 09/07/17 08:42 Pulse Rate 125 09/07/17 08:42 Respiratory Rate 16 09/07/17 08:42 Blood Pressure 110/82 09/07/17 08:42 O2 Sat by Pulse Oximetry 96 09/07/17 09:14 Oxygen Delivery Oxygen Delivery Room Air Medical Decision Making - Lab Data Result diagrams: 09/07/17 09:25 09/07/17 09:25 Lab Results 09/07/17 09/07/17 09/07/17 Range/Units 08:55 09:21 09:25 WBC 7.9 (4.3-11.1) K/mcL RBC 4.58 (4.19-5.50) M/mcL Hgb 12.8 L (12.9-16.9) g/dL Hct 36.7 L (37.5-50.1) % MCV 80.1 L (83.0-100.0) fL MCH 27.9 L (28.0-33.3) pg MCHC 34.9 (31.6-35.5) g/dL RDW 12.8 (11.5-14.5) % Plt Count 260 (140-400) K/mcL MPV 9.5 (9.4-12.4) fL Immature Gran % 0.4 (0-4) % Seg Neutrophils % 70.2 % Lymphocytes % 19.3 % Monocytes % 8.7 % Eosinophils % 1.0 % Basophils % 0.4 % Neutrophils # 5.6 (1.6-8.9) K/mcL Lymphocytes # 1.5 (0.6-4.6) K/mcL Monocytes # 0.7 (0.0-1.3) K/mcL Eosinophils # 0.1 (0.0-0.6) K/mcL Basophils # 0.0 (0.0-0.2) K/mcL PT (9.4-12.1) Seconds INR APTT (26.0-36.0) Seconds Sodium (136-145) mEq/L Potassium (3.5-4.5) mEq/L Chloride (98-109) mEq/L Carbon Dioxide (19-29) mEq/L BUN (8-26) mg/dL Creatinine (0.72-1.25) mg/dL Est GFR ( Amer) (> 60) Est GFR (Non-Af Amer) (> 60) BUN/Creatinine Ratio (6-26) Glucose (70-99) mg/dL Calculated Osmolality (280-300) Lactic Acid (0.5-2.2) mmol/L Calcium (8.6-10.8) mg/dL Total Bilirubin (0.2-1.2) mg/dL AST (5-34) Units/L ALT (0-55) Units/L Alkaline Phosphatase (38-126) Units/L Serum Total Protein (6.0-8.3) g/dL Albumin (3.5-5.0) g/dL Globulin (2.4-3.5) g/dL Albumin/Globulin Ratio (1.1-2.2) Lipase (8-78) Units/L Urine Color Yellow (Yellow) Urine Clarity Clear (Clear) Urine pH 6.5 (5.0-8.0) pH Units Ur Specific [place] > 1.030 H (1.010-1.025) Urine Protein Negative (Neg-Trace) mg/dL Urine Glucose (UA) Normal (Normal) mg/dL Urine Ketones Negative (Negative) mg/dL Urine Blood Negative (Negative) Urine Nitrite Negative (Negative) Urine Bilirubin Negative (Negative) Urine Urobilinogen Normal (Normal) mg/dL Ur Leukocyte Esterase Negative (Negative) Ur Culture Indicated? NO (NO) Stool Occult Blood Negative (Negative) Blood Type Antibody Screen 09/07/17 09/07/17 09/07/17 Range/Units 09:25 09:25 09:25 WBC (4.3-11.1) K/mcL RBC (4.19-5.50) M/mcL Hgb (12.9-16.9) g/dL Hct (37.5-50.1) % MCV (83.0-100.0) fL MCH (28.0-33.3) pg MCHC (31.6-35.5) g/dL RDW (11.5-14.5) % Plt Count (140-400) K/mcL MPV (9.4-12.4) fL Immature Gran % (0-4) % Seg Neutrophils % % Lymphocytes % % Monocytes % % Eosinophils % % Basophils % % Neutrophils # (1.6-8.9) K/mcL Lymphocytes # (0.6-4.6) K/mcL Monocytes # (0.0-1.3) K/mcL Eosinophils # (0.0-0.6) K/mcL Basophils # (0.0-0.2) K/mcL PT 12.4 H (9.4-12.1) Seconds INR 1.1 APTT 23.5 L (26.0-36.0) Seconds Sodium 140 (136-145) mEq/L Potassium 4.0 (3.5-4.5) mEq/L Chloride 105 (98-109) mEq/L Carbon Dioxide 29 (19-29) mEq/L BUN 41 H (8-26) mg/dL Creatinine 0.84 (0.72-1.25) mg/dL Est GFR ( Amer) > 60 (> 60) Est GFR (Non-Af Amer) > 60 (> 60) BUN/Creatinine Ratio 49 H (6-26) Glucose 100 H (70-99) mg/dL Calculated Osmolality 300 (280-300) Lactic Acid 1.3 (0.5-2.2) mmol/L Calcium 8.7 (8.6-10.8) mg/dL Total Bilirubin 0.6 (0.2-1.2) mg/dL AST 12 (5-34) Units/L ALT 11 (0-55) Units/L Alkaline Phosphatase 38 (38-126) Units/L Serum Total Protein 6.7 (6.0-8.3) g/dL Albumin 3.8 (3.5-5.0) g/dL Globulin 2.9 (2.4-3.5) g/dL Albumin/Globulin Ratio 1.3 (1.1-2.2) Lipase 20 (8-78) Units/L Urine Color (Yellow) Urine Clarity (Clear) Urine pH (5.0-8.0) pH Units Ur Specific [place] (1.010-1.025) Urine Protein (Neg-Trace) mg/dL Urine Glucose (UA) (Normal) mg/dL Urine Ketones (Negative) mg/dL Urine Blood (Negative) Urine Nitrite (Negative) Urine Bilirubin (Negative) Urine Urobilinogen (Normal) mg/dL Ur Leukocyte Esterase (Negative) Ur Culture Indicated? (NO) Stool Occult Blood (Negative) Blood Type Antibody Screen 09/07/17 Range/Units 09:25 WBC (4.3-11.1) K/mcL RBC (4.19-5.50) M/mcL Hgb (12.9-16.9) g/dL Hct (37.5-50.1) % MCV (83.0-100.0) fL MCH (28.0-33.3) pg MCHC (31.6-35.5) g/dL RDW (11.5-14.5) % Plt Count (140-400) K/mcL MPV (9.4-12.4) fL Immature Gran % (0-4) % Seg Neutrophils % % Lymphocytes % % Monocytes % % Eosinophils % % Basophils % % Neutrophils # (1.6-8.9) K/mcL Lymphocytes # (0.6-4.6) K/mcL Monocytes # (0.0-1.3) K/mcL Eosinophils # (0.0-0.6) K/mcL Basophils # (0.0-0.2) K/mcL PT (9.4-12.1) Seconds INR APTT (26.0-36.0) Seconds Sodium (136-145) mEq/L Potassium (3.5-4.5) mEq/L Chloride (98-109) mEq/L Carbon Dioxide (19-29) mEq/L BUN (8-26) mg/dL Creatinine (0.72-1.25) mg/dL Est GFR ( Amer) (> 60) Est GFR (Non-Af Amer) (> 60) BUN/Creatinine Ratio (6-26) Glucose (70-99) mg/dL Calculated Osmolality (280-300) Lactic Acid (0.5-2.2) mmol/L Calcium (8.6-10.8) mg/dL Total Bilirubin (0.2-1.2) mg/dL AST (5-34) Units/L ALT (0-55) Units/L Alkaline Phosphatase (38-126) Units/L Serum Total Protein (6.0-8.3) g/dL Albumin (3.5-5.0) g/dL Globulin (2.4-3.5) g/dL Albumin/Globulin Ratio (1.1-2.2) Lipase (8-78) Units/L Urine Color (Yellow) Urine Clarity (Clear) Urine pH (5.0-8.0) pH Units Ur Specific [place] (1.010-1.025) Urine Protein (Neg-Trace) mg/dL Urine Glucose (UA) (Normal) mg/dL Urine Ketones (Negative) mg/dL Urine Blood (Negative) Urine Nitrite (Negative) Urine Bilirubin (Negative) Urine Urobilinogen (Normal) mg/dL Ur Leukocyte Esterase (Negative) Ur Culture Indicated? (NO) Stool Occult Blood (Negative) Blood Type A POSITIVE Antibody Screen NEGATIVE - EKG Data EKG #1 EKG attestation: Yes I reviewed and interpreted this EKG. EKG results narrative: Sinus tachycardia. 113 bpm. WI interval 104, QRS 102, QTC 370. No signs of acute ST segment elevation or ischemia. Compared to previous EKG completed on 12/16/2011 no significant changes noted.
[2017-09-07 09:37] LABS: INR 1.1; Prothrombin Time 12.4 Seconds (9.4-12.1)
[2017-09-07 09:38] LABS: Basophils % 0.4 %; Eosinophils # 0.1 K/mcL (0.0-0.6); Hematocrit 36.7 % (37.5-50.1); Hemoglobin 12.8 g/dL (12.9-16.9); Immature Granulocytes % 0.4 % (0-4); Lymphocytes # 1.5 K/mcL (0.6-4.6); Lymphocytes % 19.3 %; Mean Corpuscular HGB Conc 34.9 g/dL (31.6-35.5); Mean Corpuscular Hemoglobin 27.9 pg (28.0-33.3); Mean Corpuscular Volume 80.1 fL (83.0-100.0); Mean Platelet Volume 9.5 fL (9.4-12.4); Monocytes # 0.7 K/mcL (0.0-1.3); Monocytes % 8.7 %; Neutrophils # 5.6 K/mcL (1.6-8.9); Platelet Count 260 K/mcL (140-400); Red Blood Count 4.58 M/mcL (4.19-5.50); Red Cell Distribution Width 12.8 % (11.5-14.5); Segmented Neutrophils % 70.2 %
[2017-09-07 09:40] LABS: Activated Partial Thrombo Time 23.5 Seconds (26.0-36.0)
[2017-09-07 09:47] LABS: Alanine Aminotransferase 11 Units/L (0-55); Albumin 3.8 g/dL (3.5-5.0); Albumin/Globulin Ratio 1.3 (1.1-2.2); Alkaline Phosphatase 38 Units/L (38-126); Aspartate Amino Transferase 12 Units/L (5-34); BUN/Creatinine Ratio 49 (6-26); Bilirubin,Total 0.6 mg/dL (0.2-1.2); Blood Urea Nitrogen 41 mg/dL (8-26); Calcium 8.7 mg/dL (8.6-10.8); Carbon Dioxide 29 mEq/L (19-29); Chloride 105 mEq/L (98-109); Globulin 2.9 g/dL (2.4-3.5); Glucose 100 mg/dL (70-99); Lipase 20 Units/L (8-78); Osmolality,Calculated 300 (280-300); Sodium 140 mEq/L (136-145); Total Protein 6.7 g/dL (6.0-8.3); eGFR For African Americans > 60 (> 60); eGFR For Non-African Americans > 60 (> 60)
--- NOTE | 2017-09-07 11:13 | Internal Medicine Consult Note ---
Date of Encounter: 09/07/17 Time of Encounter: 11:09 - Assessment and Plan (1) Upper GI bleed Current Visit: Yes Status: Acute Assessment and plan: Differential to include Thelma-Umer Tear, PUDx or Esophagitis. Have discussed risks and benefits of EGD and will provide AM of the 25th.. There are no other alternatives in testing. He has signed consent. PPI IV today and Ice Chips. Internal Medicine - CN: HPI - Data of Consult Patient: new to practice - Consult Narrative Reason for consult: Upper GI bleeding History of present illness: Mr. Garcia is a 27 year old male seen in the emergency room at the request of the hospitalist service. He admits in the last 2 days nausea, then early this morning, proceeded bloody emesis with a blood clot. No GERD or abdominal pain. Feels better during our initial evaluation. Stools were somewhat dark, past two days. No previous GI bleeding, or abd. surgery. Has not been losing wt. Past Med Surg Social Fam HX - Past Medical History Medical history: asthma Psychiatric history: anxiety, depression - Past Surgical History Surgical History: no surgical history - Social History Smoking Status: Former smoker Smokeless Tobacco Status: Yes Alcohol use: rarely Drug use: none - Family History Mother Living Status: Still Living Hx Family Endocrine Disorder: Yes (DM) Father Living Status: Still Living Hx Family Cardiac Disorders: Yes (HTN, bradycardia) - Constitutional Constitutional: no chills, no fatigue, no fever(s), no weight gain, no weight loss - Cardiovascular Cardiovascular ROS IM: no chest pain, no diaphoresis, no lightheadedness, no palpitations - Respiratory Respiratory: no cough, no hemoptysis, no dyspnea on exertion, no wheezing - Gastrointestinal Gastrointestinal: hematemesis, melena, nausea, no abdominal pain, no early satiety, no hematochezia, no loose stools Internal Medicine - CN: Meds Venlafaxine XR (24 HR) [Effexor XR] 225 mg PO DAILY 06/22/17 [History] 3 Allergy/AdvReac Type Severity Reaction Status Date / Time No Known Allergies Allergy Verified 09/07/17 10:44 Internal Medicine - CN: Exam - Constitutional Vitals: Temp Pulse Resp BP Pulse Ox 98.3 F 93 14 118/73 95 09/07/17 08:42 09/07/17 10:33 09/07/17 10:33 09/07/17 10:33 09/07/17 10:33 General appearance IM: Present: A&O X 3, pleasant, answers questions appropriately. Absent: mild distress, loss of weight - Eye Eye exam: Present: EOMI, PERRL, conjuntiva pink, sclera anicteric - ENT ENT exam: Present: mucous membranes moist - Neck Neck exam general surgery: Present: full ROM, normal inspection, supple, trachea midline - Respiratory Respiratory exam: Present: CTAB - Cardiovascular Cardiovascular exam IM: Present: RRR, +S1, +S2, tachycardia - GI/Abdominal GI/Abdominal exam IM: Present: normal bowel sounds, soft, no peritoneal signs. Absent: firm, guarding, hernia, mass, rebound, tenderness - Rectal Rectal exam: Present: deferred Additional comments: Hemmocult neg. per ED Internal Medicine - CN: Reslt - Labs CBC & Chem 7: 09/07/17 09:25 09/07/17 09:25 Labs: Short CBC 09/07/17 Range/Units 09:25 WBC 7.9 (4.3-11.1) K/mcL Hgb 12.8 L (12.9-16.9) g/dL Hct 36.7 L (37.5-50.1) % Plt Count 260 (140-400) K/mcL Neutrophils # 5.6 (1.6-8.9) K/mcL BMP 09/07/17 09:25 Sodium 140 Potassium 4.0 Chloride 105 Carbon Dioxide 29 BUN 41 H Creatinine 0.84 Glucose 100 H Calcium 8.7 Liver Function 09/07/17 Range/Units 09:25 Total Bilirubin 0.6 (0.2-1.2) mg/dL AST 12 (5-34) Units/L ALT 11 (0-55) Units/L Alkaline Phosphatase 38 (38-126) Units/L Albumin 3.8 (3.5-5.0) g/dL Urine 09/07/17 Range/Units 08:55 Urine Color Yellow (Yellow) Urine Clarity Clear (Clear) Urine pH 6.5 (5.0-8.0) pH Units Ur Specific [place] > 1.030 H (1.010-1.025) Urine Protein Negative (Neg-Trace) mg/dL Urine Glucose (UA) Normal (Normal) mg/dL - ABG Interpretation ABG results: PT/INR, D-dimer PT 12.4 Seconds (9.4-12.1) H 09/07/17 09:25 Consult Discharge Plan - Plan Referrals: Luly Kolb DO [Primary Care Provider] -
[2017-09-07] MEDS ORDERED: Pantoprazole 40 MG in 0.9 % Sodium Chloride Mini Bag 100 ML IVC SCH (11:30)
[2017-09-07] MEDS ORDERED: Naloxone 0.4 MG/ML INJ IVP PRN (11:32)
[2017-09-07] MEDS ORDERED: Ondansetron 4 MG/2 ML VIAL IVP PRN (11:33)
[2017-09-07] MEDS ORDERED: 0.9 % Sodium Chloride 1,000 ML IVC SCH (11:45)
--- NOTE | 2017-09-07 11:55 | Internal Med History&Physical ---
<Nunu Caceres - Last Filed: 09/07/17 12:11> Date of Encounter: 09/07/17 Time of Encounter: 11:51 Assessment and Plan (1) Upper GI bleed Current visit: Yes Status: Acute 1 patient has been experiencing her hematemesis mellitus stools and abdominal pain for the past 2 days. No history of GI bleeding the past. Hemoccult was negative. We did consult Dr. Gutierrez who will perform EGD tomorrow. Nothing by mouth Protonix drip We will give IV fluids (2) Tobacco dependence Current visit: No Status: Acute Encouraged patient to stop smoking (3) DVT prophylaxis Current visit: Yes Status: Acute CLOTILDE johnson Internal Medicine - H&P: HPI Chief complaint: abd pain and hematemesis Admitted From: Emergency Dept Plans for Post Hospital Care: Home History of present illness: Mr. Garcia is a 27 year old male with no past medical history. According to patient over the past 2 days nausea whenever he eats he begins to have abdominal pain which results in vomiting. Pain is relieved after vomiting. Early this morning he did have a episode of bloody emesis with a blood clot. He also has been experiencing melenic stools over the past 2 days. He denies any NSAID use, alcohol consumption previous GI bleed or abdominal surgeries. Denies any unusual weight loss or weight gain. He presented to the ER with the above complaints stool Hemoccult was negative. Hemoglobin was down from previous, ER physician did speak with Dr. Gutierrez who will perform endoscopy tomorrow. Presently patient denies any pain or discomfort no signs and symptoms of active bleeding and he is hemodynamically stable. I review this case with Dr Tan who agrees with plan. Past Med Surg Social Fam HX - Past Medical History Medical history: asthma Psychiatric history: anxiety, depression - Past Surgical History Surgical History: no surgical history - Social History Smoking Status: Former smoker Smokeless Tobacco Status: Yes Alcohol use: rarely Drug use: none - Family History Mother Living Status: Still Living Hx Family Endocrine Disorder: Yes (DM) Father Living Status: Still Living Hx Family Cardiac Disorders: Yes (HTN, bradycardia) Internal Medicine - H&P: Meds Venlafaxine XR (24 HR) [Effexor XR] 225 mg PO DAILY 06/22/17 [History] 3 Allergy/AdvReac Type Severity Reaction Status Date / Time No Known Allergies Allergy Verified 09/07/17 10:44 All Systems PM: A 10-system review of systems was performed and is negative for pertinent findings except as documented above in the HPI. - Constitutional Constitutional: no chills, no fever(s), no night sweats - EENT Eyes: no change in vision, no discharge, no pain, no photophobia Nose, mouth and throat: no dysphagia, no nasal discharge, no neck pain, no sore throat - Cardiovascular Cardiovascular ROS IM: no chest pain, no diaphoresis, no dyspnea, no lightheadedness, no palpitations, no syncope - Respiratory Respiratory: no cough, no dyspnea, no wheezing, no excessive phlegm production - Gastrointestinal Gastrointestinal: abdominal pain, hematemesis, melena, nausea, vomiting, no diarrhea, no hematochezia - Musculoskeletal Musculoskeletal ROS IM: no numbness, no tingling - Integumentary Integumentary IM: no rash, no unusual bruising - Neurological Neurological ROS: no confusion, no convulsions, no focal weakness, no numbness, no tingling, no tremor(s) - Hematologic/Lymphatic Hematologic/Lymphatic: no easy bruising - Constitutional Vitals: Temp Pulse Resp BP Pulse Ox 98.3 F 93 14 130/85 95 09/07/17 08:42 09/07/17 10:33 09/07/17 11:21 09/07/17 11:21 09/07/17 10:33 General appearance: Present: A&O X 3, pleasant, answers questions appropriately. Absent: mild distress, loss of weight - Head Head exam: Present: atraumatic, normocephalic - Eye Eye exam: Present: PERRL, conjuntiva pink, sclera anicteric Pupils: Present: PERRL Internal Med - H&P Results - Labs CBC & Chem 7: 09/07/17 09:25 09/07/17 09:25 <Katherine Tan - Last Filed: 09/07/17 12:40> Date of Encounter: 09/07/17 Internal Medicine - H&P: HPI History of present illness: Mr. Garcia is a 27 year old male All Systems PM: A 10-system review of systems was performed and is negative for pertinent findings except as documented above in the HPI. - Constitutional Vitals: Temp Pulse Resp BP Pulse Ox 98.3 F 93 14 130/85 95 09/07/17 08:42 09/07/17 10:33 09/07/17 11:21 09/07/17 11:21 09/07/17 10:33 Internal Med - H&P Results - Labs CBC & Chem 7: 09/07/17 09:25 09/07/17 09:25 - Attending Attestation Patient seen and examined, agree with assessment and plan of KARLEE Caceres. Patient with upper GI bleed, likely secondary to peptic ulcer disease. Appreciate assistance of Dr. Dudley for endoscopic evaluation. IV PPI, volume resuscitation, monitor carefully overnight with plan for EGD in AM.
[2017-09-07] MEDS: Venlafaxine XR (24 HR) 75 MG CAP.ER.24H PO SCH (13:34)
[2017-09-07] MEDS ORDERED: SODIUM CHLORIDE 0.9% IVC SCH (14:30)
[2017-09-07] MEDS ORDERED: PANTOPRAZOLE IVC SCH (14:30)
[2017-09-07] MEDS: Pantoprazole 80 MG in 0.9 % Sodium Chloride 250 ML IVC SCH (15:19)
[2017-09-07 19:28] LABS: Hematocrit 30.8 % (37.5-50.1)
[2017-09-07 19:34] LABS: Hemoglobin 10.6 g/dL (12.9-16.9)
[2017-09-08] MEDS: Pantoprazole 80 MG in 0.9 % Sodium Chloride 250 ML IVC SCH (03:59)
[2017-09-08 07:06] LABS: BUN/Creatinine Ratio 42 (6-26); Blood Urea Nitrogen 33 mg/dL (8-26); Calcium 8.5 mg/dL (8.6-10.8); Carbon Dioxide 26 mEq/L (19-29); Chloride 109 mEq/L (98-109); Glucose 112 mg/dL (70-99); Magnesium 1.9 mg/dL (1.6-2.6); Osmolality,Calculated 302 (280-300); Sodium 142 mEq/L (136-145); eGFR For African Americans > 60 (> 60); eGFR For Non-African Americans > 60 (> 60)
[2017-09-08] MEDS ORDERED: *HR* Midazolam HCl 5 MG/5 ML VIAL IVP ONE ×2 (07:26→07:40)
[2017-09-08] MEDS ORDERED: *HR* FentaNYL (PF) 100 MCG/2 ML VIAL ONE (07:27)
[2017-09-08] MEDS ORDERED: Tetracaine/Benzocaine/Butamben 200MG/SPRAY (100SPY/BOT) MM ONE (07:40)
[2017-09-08] MEDS ORDERED: *HR* FentaNYL (PF) 100 MCG/2 ML VIAL IVP ONE (07:40)
[2017-09-08] MEDS ORDERED: Simethicone 40 MG/0.6 ML MLS IR ONE (07:40)
--- NOTE | 2017-09-08 07:41 | Pre-Sedation Evaluation ---
Pre-sedation evaluation - Pre-sedation checklist Date of procedure: 09/08/17 Procedure: EGD Recent Vitals: Last Vital Signs Temp 97.5 F L 09/08/17 07:30 Pulse 108 09/08/17 07:38 Resp 16 09/08/17 07:38 BP 128/74 09/08/17 07:38 Pulse Ox 99 09/08/17 07:38 H&P (including ROS) documented in medical record: Yes Previous reaction to sedatives/anesthetics: No Dietary Status: NPO after Midnight Airway Assessment: Patient can open mouth completely, TMJ function normal Dentition: No loose teeth or bridges Possible difficult airway: No ASA Classification *see protocol: CLASS I-Normal, healthy patient
[2017-09-08] MEDS ORDERED: 0.9 % Sodium Chloride 1,000 ML IVC SCH (07:45)
--- NOTE | 2017-09-08 08:09 | Event Note ---
Date of Encounter: 09/08/17 Time of Encounter: 08:08 EGD: 1. Mild gastritis and Hiatal Hernia. 2. No bleeding at this time. Ok for DC today with PPI therapy and bland diet. I will follow up as outpt.
[2017-09-08 08:15] VITALS: BP 101/65
--- NOTE | 2017-09-08 09:09 | Discharge Summary ---
Date of Encounter: 09/08/17 Time of Encounter: 09:00 - Discharge Diagnosis (1) Upper GI bleed Priority: Primary Status: Acute Comments: Patient presented to the emergency department on 09/07/17 with complaint of hematemesis and melena, abdominal pain for 2 days prior. Patient has no GI history, no cyst significant medical history. Stool occult blood was negative. Patient was admitted to observation unit. He was placed on Protonix drip, nothing by mouth, treated with IV fluids. EGD this morning by Dr. Dudley: Mild gastritis and hiatal hernia, no bleeding. Patient okay for discharge with PPI and bland diet. Patient will follow-up in the office with Dr. Dudley. Abdomen is soft and nontender with bowel sounds present. No tenderness to epigastric area. She denies any more episodes of hematemesis, denies bowel movement. No thrombocytopenia, mild anemia after IV fluid bolus and maintenance fluids overnight. Patient is normotensive and is not requiring supplement oxygen. He is afebrile. He is stable and appropriate for discharge. (2) Tobacco dependence Priority: Secondary Status: Chronic Comments: Patient does not smoke cigarettes, patient vapes. Discussed risks, patient is aware and denies desire for smoking cessation. (3) DVT prophylaxis Priority: Secondary Status: Acute Comments: CLOTILDE johnson ordered. - Discharge Medications Prescriptions: Pantoprazole Sodium [Protonix] 20 mg PO DAILY #30 tab Home Medications: Venlafaxine XR (24 HR) [Effexor XR] 225 mg PO DAILY 06/22/17 [History] Pantoprazole Sodium [Protonix] 20 mg PO DAILY #30 tab 09/08/17 [Rx] Allergies/Adverse Reactions: 3 Allergy/AdvReac Type Severity Reaction Status Date / Time No Known Allergies Allergy Verified 09/07/17 10:44 Date of admission: 09/07/17 10:38 Primary care physician: Luly Kolb DO Discharging clinician: Emilie Mendoza Anticipated date of discharge: 09/08/17 - Patient Status Disposition: Home, Self-Care Condition: Good Functional capacity at discharge: independent ambulation Overall status at discharge: patient is back to baseline - Discharge Instructions Follow Up With: Luly Kolb DO [Primary Care Provider] - Additional Instructions: Follow-up with her primary care provider in the next 7-10 days for a follow-up visit and prescription refill. New prescription is at her pharmacy. Resume your other home medications. You may to return to work tomorrow night. Resume your normal activities as tolerated. Maintain a bland diet until you follow up with Dr. Gutierrez. - Diet and Activity Activity: increase activity as tolerated Diet: other ([place] diet. No fried, spicy, or fatty foods.) Interval History: See assessment and plan for hospital course. Hospital course: Mr. Garcia is a 27 year old male - Time Spent with Patient Total time spent providing and/or coordinating discharge services: Less than 30 minutes - Constitutional Vitals: Temp Pulse Resp BP Pulse Ox 98.2 F 109 16 101/65 96 09/08/17 08:14 09/08/17 08:14 09/08/17 08:14 09/08/17 08:14 09/08/17 08:14 General appearance: Present: cooperative, A&O X 3, pleasant, no acute distress, answers questions appropriately. Absent: mild distress, loss of weight - Head Head exam: Present: atraumatic, normal inspection, normocephalic - Eye Eye exam: Present: normal appearance, conjuntiva pink, sclera anicteric - Neck Neck exam general surgery: Present: supple, trachea midline. Absent: lymphadenopathy - Respiratory Respiratory exam: Present: CTAB. Absent: accessory muscle use, chest wall tenderness, rales, respiratory distress, rhonchi, wheezes - Cardiovascular Cardiovascular exam: Present: RRR, +S1, +S2. Absent: diastolic murmur, gallop, rubs, systolic murmur - GI/Abdominal GI/Abdominal exam: Present: normal bowel sounds, soft, no peritoneal signs. Absent: distended, hepatomegaly, tenderness - Extremities Exam Extremities exam: Present: warm, radial pulses palpable and symmetrical. Absent : calf tenderness, cyanotic, pedal edema - Neurological Exam Neurological exam: Present: CN II-XII intact, oriented X3, no focal deficits. Absent: pronater drift, facial droop, speech deficit - Skin Skin exam: Present: dry, intact
[2017-09-08] MEDS: Venlafaxine XR (24 HR) 75 MG CAP.ER.24H PO SCH (09:24)
--- NOTE | 2017-09-10 09:37 | Electrocardiograph Report ---
[place] [id number] Test Date: 2017-09-07 Pat Name: Ozzie Garcia Department: 102 Room: 3B16 Gender: M [employer] Developer: Haydee : 1990 Requested By: Jaclyn Rivera Order Number: [id number] Reading MD: Jose A Smith DO Measurements Intervals [place] Rate: 113 P: 39 MO: 104 QRS: 53 QRSD: 102 T: 55 QT: 303 QTc: 370 Interpretive Statements SINUS TACHYCARDIA Electronically Signed On 09-10-2017 9:36:07 EST by Jose A Smith DO
== END 2017-09-08 12:24 | disposition home or self-care (01) ==
LOC: EMEROO 08:35 → 3BNU 08:35
PROVIDERS: ADMIT Internal Medicine; ATTEND Registered Nurse
PROC: ENDOEBX (2017-09-08 07:30)

== ENCOUNTER 2017-09-11 21:11 | Inpatient (IN) ==
[2017-09-11 22:24] LABS: Basophils % 0.5 %; Eosinophils # 0.2 K/mcL (0.0-0.6); Eosinophils % 3.1 %; Immature Granulocytes % 0.3 % (0-4); Lymphocytes # 2.1 K/mcL (0.6-4.6); Mean Corpuscular HGB Conc 34.4 g/dL (31.6-35.5); Mean Corpuscular Hemoglobin 28.2 pg (28.0-33.3); Mean Platelet Volume 10.2 fL (9.4-12.4); Monocytes # 0.5 K/mcL (0.0-1.3); Monocytes % 7.8 %; Neutrophils # 3.6 K/mcL (1.6-8.9); Platelet Count 282 K/mcL (140-400); Red Blood Count 3.05 M/mcL (4.19-5.50); Segmented Neutrophils % 55.3 %
[2017-09-11 22:25] LABS: Hemoglobin 8.6 g/dL (12.9-16.9)
[2017-09-11 22:36] LABS: BUN/Creatinine Ratio 13 (6-26); Blood Urea Nitrogen 11 mg/dL (8-26); Calcium 9.1 mg/dL (8.6-10.8); Carbon Dioxide 29 mEq/L (19-29); Chloride 106 mEq/L (98-109); Glucose 90 mg/dL (70-99); Osmolality,Calculated 289 (280-300); Potassium 3.5 mEq/L (3.5-4.5); Sodium 140 mEq/L (136-145); eGFR For African Americans > 60 (> 60); eGFR For Non-African Americans > 60 (> 60)
[2017-09-11] MEDS ORDERED: 0.9 % Sodium Chloride 1,000 ML IVC ONE (22:51)
[2017-09-11] MEDS ORDERED: Pantoprazole 80 MG in Water for inj. (sterile) 10 ML IVP ONE (23:01)
--- NOTE | 2017-09-11 23:28 | Emergency Department Note ---
Disposition Clinical Impression: Anemia Qualifiers: Anemia type: unspecified type Qualified Code(s): D64.9 - Anemia, unspecified GI bleed Qualifiers: GI bleed type/associated pathology: melena Qualified Code(s): K92.1 - Melena Disposition: Admitted As Inpatient Condition: Undetermined Referrals: Luly Kolb DO [Resident] - Forms: ED Satisfaction Letter Time of Disposition: 00:10 Dizziness HPI - General Chief Complaint: ED Dizziness Stated Complaint: "Black Stool/Dizzy" Time Seen by Provider: 09/11/17 22:35 Source: patient, family Mode of arrival: ambulatory Limitations: no limitations Nursing Notes Reviewed: Yes Vital Signs Reviewed: Yes - History of Present Illness HPI Narrative: 27-year-old male with recent diagnosis of gastric ulcer arrives [facility] emergency department complaining of worsening bleeding and black stool as well as dizziness on ambulation. She recently had a endoscopy which revealed this. The patient was noted to have a hemoglobin of 10.[address] days ago upon admission. Dr. Gutierrez performed endoscopy. Biopsies were also obtained that time. The patient arrives to the emergency department after experiencing episodes of dizziness and weakness. Upon arrival to the emergency department his hemoglobin was noted at 8.6 which is a drop in 2 days. Pt Subjective Complaint: dizziness, lightheadedness, weakness Onset (ago): day(s) (4) History of similar episodes: Yes History of trauma: No Severity: none Improves with: nothing Worsens with: nothing Associated symptoms: Reports: weakness - Related Data Home Medications Medication Instructions Recorded Confirmed Venlafaxine XR (24 HR) [Effexor XR] 225 mg PO DAILY 06/22/17 09/07/17 Previous Rx's Medication Instructions Recorded Pantoprazole Sodium [Protonix] 20 mg PO DAILY #30 tab 09/08/17 Allergies Allergy/AdvReac Type Severity Reaction Status Date / Time No Known Allergies Allergy Verified 09/11/17 22:00 All systems ED: reviewed and negative except as stated. Constitutional: Reports: weakness. Denies: fever, chills ENT ED: Denies: congestion Cardiovascular: Denies: chest pain, dyspnea on exertion, edema, syncope Respiratory: Denies: cough, dyspnea, wheezes Gastrointestinal: Denies: abdominal pain Genitourinary: Denies: urgency, dysuria Musculoskeletal: Denies: back pain, neck pain Integumentary: Denies: rash Neurological: Reports: weakness. Denies: headache, numbness, paresthesias, confusion Past Medical History - Past Medical History Attestation: Yes The following information was validated with the patient. Source: patient Medical history: Reports: asthma Surgical history: Reports: no surgical history Psychiatric history: Reports: anxiety, depression - Social History Smoking Status: Former smoker Smokeless Tobacco Status: Yes Alcohol use: Reports: none Drug use: Reports: none Physical Exam - General Limitations: no limitations General appearance: alert, in no apparent distress - Head Head exam: atraumatic, normocephalic, normal inspection - Eye Eye exam: Present: normal appearance, PERRL, EOMI - ENT ENT exam: normal exam, normal oropharynx, mucous membranes moist - Neck Neck exam: Present: normal inspection, full ROM, trachea midline - Chest Chest inspection: Present: normal inspection, symmetric chest wall rise - Respiratory Respiratory exam: Present: normal lung sounds bilaterally - Cardiovascular Cardiovascular exam: Present: regular rate, normal rhythm, normal heart sounds - Abdominal Exam Abdominal exam: Present: soft, Non-Tender. Absent: tenderness, distention, guarding, rebound, rigidity - Extremities Exam Extremities exam: Present: normal inspection, full ROM. Absent: tenderness, pedal edema Course Vital Signs Temperature 98.1 F 09/11/17 21:56 Pulse Rate 97 09/11/17 21:56 Respiratory Rate 16 09/11/17 21:56 Blood Pressure 123/80 09/11/17 21:56 O2 Sat by Pulse Oximetry 100 09/11/17 21:56 Temperature 98.1 F 09/11/17 21:56 Pulse Rate 97 09/11/17 21:56 Respiratory Rate 16 09/11/17 21:56 Blood Pressure 123/80 09/11/17 21:56 O2 Sat by Pulse Oximetry 100 09/11/17 21:56 Oxygen Delivery Oxygen Delivery Room Air Dizziness - MDM Narrative Medical decision making narrative: Patient's workup here in the emergency department demonstrates a large drop in his hemoglobin of the course the past few days. CT scan demonstrates no perforation. Given the patient's symptoms and worsening anemia, we will admit the patient to the hospital for further care and likely trending of his hemoglobin. The patient is continued to experience malonic stools. I am concerned about this patient going home as he is symptomatic with dizziness at this time. Accepted by Dr. Smiley. - Medical Records Medical records reviewed: Yes I reviewed the patient's medical records. - Lab Data Lab results reviewed: Yes I reviewed the patient's lab results. Result diagrams: 09/11/17 22:15 09/11/17 22:15 Lab Results 09/11/17 09/11/17 Range/Units 22:15 22:15 WBC 6.5 (4.3-11.1) K/mcL RBC 3.05 L (4.19-5.50) M/mcL Hgb 8.6 L D (12.9-16.9) g/dL Hct 25.0 L (37.5-50.1) % MCV 82.0 L (83.0-100.0) fL MCH 28.2 (28.0-33.3) pg MCHC 34.4 (31.6-35.5) g/dL RDW 14.0 (11.5-14.5) % Plt Count 282 (140-400) K/mcL MPV 10.2 (9.4-12.4) fL Immature Gran % 0.3 (0-4) % Seg Neutrophils % 55.3 % Lymphocytes % 33.0 % Monocytes % 7.8 % Eosinophils % 3.1 % Basophils % 0.5 % Neutrophils # 3.6 (1.6-8.9) K/mcL Lymphocytes # 2.1 (0.6-4.6) K/mcL Monocytes # 0.5 (0.0-1.3) K/mcL Eosinophils # 0.2 (0.0-0.6) K/mcL Basophils # 0.0 (0.0-0.2) K/mcL Sodium 140 (136-145) mEq/L Potassium 3.5 (3.5-4.5) mEq/L Chloride 106 (98-109) mEq/L Carbon Dioxide 29 (19-29) mEq/L BUN 11 (8-26) mg/dL Creatinine 0.82 (0.72-1.25) mg/dL Est GFR ( Amer) > 60 (> 60) Est GFR (Non-Af Amer) > 60 (> 60) BUN/Creatinine Ratio 13 (6-26) Glucose 90 (70-99) mg/dL Calculated Osmolality 289 (280-300) Calcium 9.1 (8.6-10.8) mg/dL - Radiology Data Radiology results reviewed: Yes I reviewed the patient's radiology results.
[2017-09-11] MEDS ORDERED: Pantoprazole 80 MG in Water for inj. (sterile) 10 ML IVPB ONE (23:30)
[2017-09-11] MEDS ORDERED: Pantoprazole 80 MG in 0.9 % Sodium Chloride 250 ML IVPB ONE (23:45)
--- NOTE | 2017-09-12 00:40 | Emergency Department Note ---
START Narrative - START START: I examined this patient and my medical decision-making was reviewed with the Resident Physician. I agree with the documented findings, disposition and treatment plan as described except to the extent set forth below. 27 year old male presets to the ED with complaints of black stool and dizziness which can be attributed to his peptic ulceer that is currently bleeding. no surgical abdomen and ABCT does not show acute perforation. protonix given and admittedto medicine.
[2017-09-12] MEDS ORDERED: Acetaminophen 325 MG TABLET PO PRN (02:29)
[2017-09-12] MEDS ORDERED: Naloxone 0.4 MG/ML INJ IVP PRN (02:29)
[2017-09-12] MEDS ORDERED: *HR* Promethazine 25 MG/ML VIAL IVP PRN (02:29)
--- NOTE | 2017-09-12 02:39 | Internal Med History&Physical ---
Date of Encounter: 09/12/17 Time of Encounter: 01:45 Assessment and Plan (1) Near syncope Current visit: Yes Status: Acute 1. Likely due to anemia and recent GI bleed. 2. Will monitor on telemetry and serial vital signs. 3. Monitor with frequent H/H and transfuse PRBC's if necessary. (2) Upper GI bleed Current visit: No Status: Acute 1. Will start on Protonix drip. 2. Serial H/H Q8H. 3. Transfuse PRBC if necessary. 4. Clear liquid diet for now. 5. May need repeat endoscopy if there is evidence of recurrent or active bleed. (3) DVT prophylaxis Current visit: No Status: Acute 1. EPCD's. Internal Medicine - H&P: HPI Chief complaint: near syncope; melena Admitted From: Emergency Dept Plans for Post Hospital Care: Home History of present illness: Mr. Garcia is a 27 year old male who presents to the [facility] with complaints of near syncope and several bouts of melena. Patient was just hospitalized a few days ago here at [facility] for upper GI bleed. He underwent EGD which found patient to have evidence of gastritis and duodenitis but no actual bleeding ulcer. He was monitored, treated with aggressive PPI therapy, and then discharged home with close outpatient follow-up. However, over the last 24 hours, he developed significant amount of abdominal cramping and frequent bouts of melena. He only had one episode of melena prior to last admission. Since his discharge, he has had no melena until roughly 24 hours ago. He then developed several episodes of dark, tarry stools. He denies any fevers, hematemesis, nausea, or vomiting. He states he has been feeling lightheaded and dizzy and almost passed out after his last episode of mel[facility]. He therefore came to the ER where he was evaluated and admitted to hospitalist service. Of note, he does have 2 g hemoglobin drop since discharge. He has had over 4 g hemoglobin drop since admission 4 days ago. He denies any NSAID use or abuse, alcohol use or abuse, or family history of peptic ulcer disease. Past Med Surg Social Fam HX - Past Medical History Attestation: Yes The following information was validated with the patient. Source: patient, old records reviewed, obtained from family Medical history: asthma Psychiatric history: anxiety, depression - Past Surgical History Surgical History: no surgical history - Social History Smoking Status: Former smoker Smokeless Tobacco Status: Yes Alcohol use: none Drug use: none Occupational status: employed Current living situation: Home, With Family Activity Level: Independent ambulation Recent Out of Country Travel Within the Last 8 Weeks: No - Family History Mother Living Status: Still Living Hx Family Endocrine Disorder: Yes (DM) Father Living Status: Still Living Hx Family Cardiac Disorders: Yes (HTN, bradycardia) Internal Medicine - H&P: Meds Venlafaxine XR (24 HR) [Effexor XR] 225 mg PO DAILY 06/22/17 [History] Pantoprazole Sodium [Protonix] 20 mg PO DAILY #30 tab 09/08/17 [Rx] 3 Allergy/AdvReac Type Severity Reaction Status Date / Time No Known Allergies Allergy Verified 09/11/17 22:00 - Constitutional Constitutional: no chills, no fever(s), no night sweats - EENT Eyes: no blurry vision, no change in vision Ears: no ear pain, no tinnitus Nose, mouth and throat: no nasal congestion, no nasal discharge, no sinus pressure, no sore throat - Cardiovascular Cardiovascular ROS IM: lightheadedness, other (+ near syncope), no chest pain, no dyspnea, no dyspnea on exertion, no irregular heart rhythm, no palpitations, no paroxysmal nocturnal dyspnea - Respiratory Respiratory: snoring, no cough, no dyspnea, no hemoptysis, no dyspnea on exertion, no wheezing - Gastrointestinal Gastrointestinal: cramping, melena, no abdominal pain, no diarrhea, no hematemesis, no hematochezia, no nausea, no vomiting - Genitourinary Genitourinary ROS male: no dysuria, no hematuria - Musculoskeletal Musculoskeletal ROS IM: no arthralgias, no back pain - Integumentary Integumentary IM: no rash, no jaundice - Neurological Neurological ROS: weakness, no dizziness, no focal weakness, no frequent falls, no headache(s) - Psychiatric Psychiatric: no anxiety, no depression - Endocrine Endocrine IM: no polydipsia, no polyuria - Hematologic/Lymphatic Hematologic/Lymphatic: no easy bruising, no lymphadenopathy - Allergic/Immunologic Allergic/Immunologic: no GI upset with certain foods - Constitutional Vitals: Temp Pulse Resp BP Pulse Ox 98.2 F 97 15 145/93 100 09/12/17 01:05 09/12/17 01:05 09/12/17 01:05 09/12/17 01:05 09/12/17 01:05 General appearance: Present: cooperative, A&O X 3, pleasant, no acute distress, answers questions appropriately - Head Head exam: Present: atraumatic, normal inspection - Eye Eye exam: Present: EOMI, normal appearance, PERRL. Absent: scleral icterus Pupils: Present: normal accommodation - ENT ENT exam: Present: mucous membranes dry, normal exam. Absent: normal oropharynx (large tonsils) - Neck Neck exam general surgery: Present: full ROM, supple. Absent: lymphadenopathy, tenderness, nuchal rigidity - Respiratory Respiratory exam: Present: CTAB. Absent: chest wall tenderness, rales, rhonchi , wheezes - Cardiovascular Cardiovascular exam: Present: RRR, +S1, +S2. Absent: diastolic murmur, systolic murmur - GI/Abdominal GI/Abdominal exam: Present: normal bowel sounds, soft. Absent: guarding, hepatomegaly, mass, rebound, splenomegaly, tenderness - Extremities Exam Extremities exam: Present: full ROM, warm, radial pulses palpable and symmetrical. Absent: calf tenderness, tenderness - Back Exam Back exam: Absent: CVA tenderness (L), CVA tenderness (R) - Neurological Exam Neurological exam: Present: alert, CN II-XII intact, oriented X3, no focal deficits, strengths equal and symetr throughout - Psychiatric Psychiatric exam: Present: normal affect, normal mood - Skin Skin exam: Present: dry, warm. Absent: rash Internal Med - H&P Results - Labs CBC & Chem 7: 09/11/17 22:15 09/11/17 22:15
[2017-09-12] MEDS: Pantoprazole 40 MG in 0.9 % Sodium Chloride Mini Bag 100 ML IVC SCH ×2 (04:10→10:51)
[2017-09-12 04:46] LABS: Prothrombin Time 10.7 Seconds (9.4-12.1)
[2017-09-12 04:50] LABS: Basophils % 0.3 %; Eosinophils # 0.2 K/mcL (0.0-0.6); Eosinophils % 3.5 %; Hematocrit 23.3 % (37.5-50.1); Immature Granulocytes % 0.3 % (0-4); Lymphocytes % 32.9 %; Mean Corpuscular HGB Conc 34.3 g/dL (31.6-35.5); Mean Corpuscular Hemoglobin 28.3 pg (28.0-33.3); Mean Corpuscular Volume 82.3 fL (83.0-100.0); Mean Platelet Volume 10.4 fL (9.4-12.4); Monocytes # 0.5 K/mcL (0.0-1.3); Monocytes % 7.7 %; Neutrophils # 3.3 K/mcL (1.6-8.9); Platelet Count 233 K/mcL (140-400); Red Blood Count 2.83 M/mcL (4.19-5.50); Red Cell Distribution Width 14.3 % (11.5-14.5); Segmented Neutrophils % 55.3 %
[2017-09-12 05:40] LABS: Alanine Aminotransferase 12 Units/L (0-55); Albumin 3.1 g/dL (3.5-5.0); Albumin/Globulin Ratio 1.2 (1.1-2.2); Alkaline Phosphatase 34 Units/L (38-126); Aspartate Amino Transferase 13 Units/L (5-34); BUN/Creatinine Ratio 12 (6-26); Bilirubin,Total 0.2 mg/dL (0.2-1.2); Blood Urea Nitrogen 10 mg/dL (8-26); Calcium 8.1 mg/dL (8.6-10.8); Carbon Dioxide 26 mEq/L (19-29); Chloride 109 mEq/L (98-109); Globulin 2.5 g/dL (2.4-3.5); Glucose 78 mg/dL (70-99); Magnesium 1.7 mg/dL (1.6-2.6); Osmolality,Calculated 288 (280-300); Potassium 3.6 mEq/L (3.5-4.5); Sodium 140 mEq/L (136-145); Total Protein 5.6 g/dL (6.0-8.3); eGFR For African Americans > 60 (> 60); eGFR For Non-African Americans > 60 (> 60)
[2017-09-12] MEDS: Venlafaxine XR (24 HR) 75 MG CAP.ER.24H PO SCH (09:39)
[2017-09-12 11:02] LABS: Hematocrit 24.7 % (37.5-50.1); Hemoglobin 8.5 g/dL (12.9-16.9)
--- NOTE | 2017-09-12 15:38 | Internal Med Progress Note ---
Date of Encounter: 09/12/17 Time of Encounter: 15:36 - Assessment and plan (1) Upper GI bleed Current Visit: No Status: Acute Assessment and plan: So far stable Hb.. cont close monitoring no need of transfusions spoke to Dr. Dudley, he is planing on doing f/u EGD in AM NPO after mid night (2) H. pylori duodenitis Current Visit: Yes Status: Acute Assessment and plan: reviewed biopsy results from 09/08/17 EGD Showed H. Pylori positive so started him on quadruple therapy with PPI + Amoxicillin + Clarithromycin + Flagyl # 10/28 (3) Gastritis due to bacteria Current Visit: Yes Status: Acute (4) Anemia Current Visit: Yes Status: Acute Assessment and plan: Hb dropped down to 8.5 from 10.6 4 days ago stable now mostly blood loss anemia with duodenitis cont close monitoring Qualifiers: Anemia type: unspecified type Qualified Code(s): D64.9 - Anemia, unspecified (5) Near syncope Current Visit: Yes Status: Acute Assessment and plan: due to GI bleed Improving - Subjective Interval history: Mr. Garcia is a 27 year old male who presents to the ER [facility] with complaints of near syncope and several bouts of melena. Patient was just hospitalized a few days ago here at [place] for upper GI bleed. He underwent EGD which found patient to have evidence of gastritis and duodenitis but no actual bleeding ulcer. He was admitted in the hospital and placed him PPI gtt. He is tolerating clear liquid diet well. His abdominal pain improved. He does not have any more BM - Constitutional Vitals: Temp Pulse Resp BP Pulse Ox 98.1 F 85 16 120/78 100 09/12/17 14:36 09/12/17 14:36 09/12/17 14:36 09/12/17 14:36 09/12/17 14:36 General appearance: Present: cooperative, A&O X 3, pleasant, no acute distress, answers questions appropriately - Head Head exam: Present: atraumatic, normal inspection - Respiratory Respiratory exam: Present: decreased breath sounds. Absent: rales, respiratory distress, rhonchi, wheezes - GI/Abdominal GI/Abdominal exam: Present: normal bowel sounds, soft. Absent: rebound, rigid, tenderness - Extremities Exam Extremities exam: Absent: calf tenderness, pedal edema, tenderness - Back Exam Back exam: Absent: CVA tenderness (L), CVA tenderness (R) - Psychiatric Psychiatric exam: Present: normal affect, normal mood Internal Medicine: Result - Labs CBC & Chem 7: 09/12/17 10:54 09/12/17 03:26 Labs: Short CBC 09/12/17 09/12/17 Range/Units 03:26 10:54 WBC 6.0 (4.3-11.1) K/mcL Hgb 8.0 L 8.5 L (12.9-16.9) g/dL Hct 23.3 L 24.7 L (37.5-50.1) % Plt Count 233 (140-400) K/mcL Neutrophils # 3.3 (1.6-8.9) K/mcL BMP 09/12/17 03:26 Sodium 140 Potassium 3.6 Chloride 109 Carbon Dioxide 26 BUN 10 Creatinine 0.83 Glucose 78 Calcium 8.1 L Liver Function 09/12/17 Range/Units 03:26 Total Bilirubin 0.2 (0.2-1.2) mg/dL AST 13 (5-34) Units/L ALT 12 (0-55) Units/L Alkaline Phosphatase 34 L (38-126) Units/L Albumin 3.1 L (3.5-5.0) g/dL - ABG Interpretation ABG results: PT/INR, D-dimer PT 10.7 Seconds (9.4-12.1) 09/12/17 03:26 Consult Discharge Plan - Plan Referrals: NONE,PCP [Primary Care Provider] -
[2017-09-12] MEDS ORDERED: Pantoprazole 40 MG in 0.9 % Sodium Chloride 100 ML IVC SCH (16:15)
[2017-09-12 16:26] LABS: Hematocrit 24.9 % (37.5-50.1); Hemoglobin 8.5 g/dL (12.9-16.9)
[2017-09-12] MEDS: Amoxicillin 500 MG CAPSULE PO SCH (21:13)
[2017-09-12] MEDS: metroNIDAZOLE 500 MG TABLET PO SCH (21:13)
[2017-09-12 21:48] LABS: Hematocrit 25.8 % (37.5-50.1); Hemoglobin 8.9 g/dL (12.9-16.9)
[2017-09-13] MEDS: Pantoprazole 80 MG in 0.9 % Sodium Chloride 250 ML IVC SCH ×2 (00:15→13:48)
[2017-09-13] MEDS ORDERED: 0.9 % Sodium Chloride 1,000 ML IVC SCH (07:15)
--- NOTE | 2017-09-13 07:15 | Internal Medicine Consult Note ---
Date of Encounter: 09/13/17 Time of Encounter: 07:12 - Assessment and Plan (1) GI bleed Current Visit: Yes Status: Acute Assessment and plan: He requires repeat EGD for what may be recurrent bleeding in the upper GI tract. It is possible he is clearing blood from the previous, initial bleed as well. The amt. of erythem/erosions seen is not corresponding to the blood loss.. Difloys lesion to be considered as well. Qualifiers: GI bleed type/associated pathology: melena Qualified Code(s): K92.1 - Melena (2) Acute blood loss anemia Current Visit: Yes Status: Acute (3) Gastritis due to bacteria Current Visit: Yes Status: Acute Assessment and plan: Curently on appropriate PPI therapy and antibiotics. (4) H. pylori duodenitis Current Visit: Yes Status: Acute Internal Medicine - CN: HPI - Data of Consult Patient: known to practice within the last 3 years Requesting Physician: Karena Mortensen MD - Consult Narrative Reason for consult: Melena/ possible ongoing GI bleeding History of present illness: Mr. Garcia is a 27 year old male seen at request of hospitalist.. he was DC's about 3 days ago, went home, then had melena.. No Hematemesis at this time. Minimal cramping. No vomiting, some lightheadedness and nausea. EGD from 5 days ago with gasrtitis and H. Pylori. Discussed the need for repeat EGD today.. he has signed consent. Risks and benefits discussed. Past Med Surg Social Fam HX - Past Medical History Medical history: asthma Psychiatric history: anxiety, depression - Past Surgical History Surgical History: no surgical history - Social History Smoking Status: Former smoker Smokeless Tobacco Status: Yes Alcohol use: none Drug use: none - Family History Mother Living Status: Still Living Hx Family Endocrine Disorder: Yes (DM) Father Living Status: Still Living Hx Family Cardiac Disorders: Yes (HTN, bradycardia) All systems: reviewed and no additional remarkable complaints except as stated Internal Medicine - CN: Meds Venlafaxine XR (24 HR) [Effexor XR] 225 mg PO DAILY 06/22/17 [History] Pantoprazole Sodium [Protonix] 20 mg PO DAILY #30 tab 09/08/17 [Rx] 3 Allergy/AdvReac Type Severity Reaction Status Date / Time No Known Allergies Allergy Verified 09/11/17 22:00 Internal Medicine - CN: Exam - Constitutional Vitals: Temp Pulse Resp BP Pulse Ox 97.7 F 93 14 113/72 98 09/13/17 06:36 09/13/17 06:36 09/13/17 06:36 09/13/17 06:36 09/13/17 06:36 General appearance IM: Present: A&O X 3, pleasant, no acute distress - Eye Eye exam: Present: conjuntiva pink, sclera anicteric - Respiratory Respiratory exam: Present: CTAB. Absent: tachypnea - Cardiovascular Cardiovascular exam IM: Present: RRR. Absent: JVD, tachycardia - GI/Abdominal GI/Abdominal exam IM: Present: normal bowel sounds, soft, no peritoneal signs. Absent: tenderness - Rectal Rectal exam: Present: deferred Internal Medicine - CN: Reslt - Labs CBC & Chem 7: 09/12/17 21:40 09/12/17 03:26 Labs: Short CBC 09/12/17 09/12/17 09/12/17 Range/Units 10:54 15:50 21:40 Hgb 8.5 L 8.5 L 8.9 L (12.9-16.9) g/dL Hct 24.7 L 24.9 L 25.8 L (37.5-50.1) % - ABG Interpretation ABG results: PT/INR, D-dimer PT 10.7 Seconds (9.4-12.1) 09/12/17 03:26 Consult Discharge Plan - Plan Referrals: NONE,PCP [Primary Care Provider] -
[2017-09-13] MEDS: Amoxicillin 500 MG CAPSULE PO SCH ×2 (07:54→22:01)
[2017-09-13] MEDS: Venlafaxine XR (24 HR) 75 MG CAP.ER.24H PO SCH (07:54)
[2017-09-13] MEDS: metroNIDAZOLE 500 MG TABLET PO SCH ×3 (07:54→22:01)
[2017-09-13] MEDS ORDERED: *HR* Midazolam HCl 5 MG/5 ML VIAL IVP ONE ×2 (11:29→12:20)
[2017-09-13] MEDS ORDERED: *HR* FentaNYL (PF) 100 MCG/2 ML VIAL ONE (11:29)
[2017-09-13] MEDS ORDERED: *HR* FentaNYL (PF) 100 MCG/2 ML VIAL IVP ONE (12:20)
[2017-09-13] MEDS ORDERED: Simethicone 40 MG/0.6 ML MLS IR ONE (12:20)
[2017-09-13] MEDS ORDERED: Tetracaine/Benzocaine/Butamben 200MG/SPRAY (100SPY/BOT) MM ONE (12:20)
--- NOTE | 2017-09-13 12:22 | Pre-Sedation Evaluation ---
Pre-sedation evaluation - Pre-sedation checklist Date of procedure: 09/13/17 Procedure: EGD Recent Vitals: Last Vital Signs Temp 97.8 F 09/13/17 11:39 Pulse 93 09/13/17 12:20 Resp 16 09/13/17 12:20 BP 131/78 09/13/17 12:20 Pulse Ox 97 09/13/17 12:20 H&P (including ROS) documented in medical record: Yes Previous reaction to sedatives/anesthetics: No Dietary Status: NPO after Midnight Airway Assessment: Patient can open mouth completely, TMJ function normal Dentition: No loose teeth or bridges Possible difficult airway: No ASA Classification *see protocol: CLASS I-Normal, healthy patient
[2017-09-13] MEDS ORDERED: Ferumoxytol 510 MG in 0.9 % Sodium Chloride 100 ML IVPB ONE (12:45)
--- NOTE | 2017-09-13 12:49 | Event Note ---
Date of Encounter: 09/13/17 Time of Encounter: 12:46 EGD Findings 1. Small Ulcer, lesser curvature, with two red spots. No active bleeding; applied heater probe. No bleeding afterwards. Plan 1. Add Carafate 2. Iron therapy 3. Cont. IV PPI therapy for another 24 hrs. 4. Full liquids. 5. Cont. treatment for H. Pylori.
--- NOTE | 2017-09-13 12:57 | Internal Med Progress Note ---
Date of Encounter: 09/13/17 Time of Encounter: 12:54 - Assessment and plan (1) Upper GI bleed Current Visit: No Status: Acute Assessment and plan: So far stable Hb @ 8.9 cont close monitoring no need of transfusions s/p EGD - showed gastric ulcer.. did cauterize started him on full liquid diet also started him on Carafate today cont PPI gtt for another day as per Dr. Dudley recommendations Pt does need to stay in the hospital more than 2 night and he is high risk for profuse GI bleed with acute gastric ulcer. He does need continuous IV infusion of PPI. So will switch him to full admission today. I did review my colleague Dr. Smiley's H & P including HPI, PMH, PSH, SH, FH and ROS, no changes noticed (2) H. pylori duodenitis Current Visit: Yes Status: Acute Assessment and plan: reviewed biopsy results from 09/08/17 EGD Showed H. Pylori positive Cont him on quadruple therapy with PPI + Amoxicillin + Clarithromycin + Flagyl # 2 (3) Gastritis due to bacteria Current Visit: Yes Status: Acute (4) Anemia Current Visit: Yes Status: Acute Assessment and plan: Hb dropped down to 8.5 from 10.6 4 days ago stable now mostly blood loss anemia with duodenitis and gastric ulcer cont close monitoring Qualifiers: Anemia type: unspecified type Qualified Code(s): D64.9 - Anemia, unspecified (5) Near syncope Current Visit: Yes Status: Acute Assessment and plan: due to GI bleed Improving - Subjective Interval history: Mr. Garcia is a 27 year old male [facility] of [facility] syncope and several bouts of melena. Patient was just hospitalized a few days ago here at [place] for upper GI bleed. He underwent EGD which found patient to have evidence of gastritis and duodenitis but no actual bleeding ulcer. He was admitted in the hospital and started him on PPI gtt. He tolerated clear liquid diet well. His abdominal pain improved. He does not have any more BM. Just came back from EGD - Constitutional Vitals: Temp Pulse Resp BP Pulse Ox 97.8 F 92 16 129/76 94 09/13/17 11:39 09/13/17 12:40 09/13/17 12:40 09/13/17 12:40 09/13/17 12:40 General appearance: Present: A&O X 3, pleasant, no acute distress - Head Head exam: Present: atraumatic, normal inspection - Respiratory Respiratory exam: Present: decreased breath sounds. Absent: rales, respiratory distress, rhonchi, wheezes - Cardiovascular Cardiovascular exam: Present: RRR, +S1, +S2. Absent: tachycardia - GI/Abdominal GI/Abdominal exam: Present: normal bowel sounds, soft. Absent: rebound, rigid, tenderness - Extremities Exam Extremities exam: Absent: calf tenderness, pedal edema, tenderness - Back Exam Back exam: Absent: CVA tenderness (L), CVA tenderness (R) - Psychiatric Psychiatric exam: Present: normal affect, normal mood Internal Medicine: Result - Labs CBC & Chem 7: 09/12/17 21:40 09/12/17 03:26 Labs: Short CBC 09/12/17 09/12/17 Range/Units 15:50 21:40 Hgb 8.5 L 8.9 L (12.9-16.9) g/dL Hct 24.9 L 25.8 L (37.5-50.1) % - ABG Interpretation ABG results: PT/INR, D-dimer PT 10.7 Seconds (9.4-12.1) 09/12/17 03:26 Consult Discharge Plan - Plan Referrals: NONE,PCP [Primary Care Provider] -
[2017-09-13 13:29] LABS: Hematocrit 23.7 % (37.5-50.1); Hemoglobin 8.2 g/dL (12.9-16.9)
[2017-09-13] MEDS: Sucralfate 1 GM TABLET PO SCH ×3 (13:48→22:06)
[2017-09-13] MEDS ORDERED: Docusate Oral Soln 100 MG/10 ML UDC PO PRN (19:15)
[2017-09-13 20:54] LABS: Hematocrit 25.7 % (37.5-50.1); Hemoglobin 8.9 g/dL (12.9-16.9)
--- NOTE | 2017-09-13 20:58 | Event Note ---
Date of Encounter: 09/13/17 Time of Encounter: 20:56 Called by RN w complaint that patient HR was 140's. I ordered STAT EKG, H/H, BMP, and magnesium. HR now in the 110's (sinus tachycardia), BP 136/76. On exam, he feels well and has no complaints. He denies any BM since admission. No melena, hematochezia, or hematemesis. EKG shows sinus tachycardia. Will monitor H/H and vitals closely. EGD findings noted from earlier today.
[2017-09-13 21:07] LABS: BUN/Creatinine Ratio 10 (6-26); Blood Urea Nitrogen 9 mg/dL (8-26); Calcium 8.9 mg/dL (8.6-10.8); Carbon Dioxide 25 mEq/L (19-29); Chloride 107 mEq/L (98-109); Glucose 108 mg/dL (70-99); Magnesium 1.8 mg/dL (1.6-2.6); Osmolality,Calculated 293 (280-300); Potassium 3.4 mEq/L (3.5-4.5); Sodium 142 mEq/L (136-145); eGFR For African Americans > 60 (> 60); eGFR For Non-African Americans > 60 (> 60)
[2017-09-13] MEDS ORDERED: Magnesium Sulfate 2 GM in D5% in Water 100 ML IVPB ONE (21:27)
[2017-09-13] MEDS ORDERED: Potassium Chloride 40 MEQ, Lidocaine 1% 2 ML in D5% in Water 500 ML IVPB ONE (22:00)
[2017-09-13] MEDS ORDERED: 0.9 % Sodium Chloride 500 ML IVC ONE (22:58)
[2017-09-14] MEDS: Pantoprazole 80 MG in 0.9 % Sodium Chloride 250 ML IVC SCH ×2 (00:32→11:22)
[2017-09-14 05:17] LABS: Hematocrit 23.4 % (37.5-50.1)
[2017-09-14] MEDS: metroNIDAZOLE 500 MG TABLET PO SCH (08:44)
[2017-09-14] MEDS: Sucralfate 1 GM TABLET PO SCH ×2 (08:44→11:35)
[2017-09-14] MEDS: Venlafaxine XR (24 HR) 75 MG CAP.ER.24H PO SCH (08:44)
[2017-09-14] MEDS: Amoxicillin 500 MG CAPSULE PO SCH (08:45)
[2017-09-14 11:07] VITALS: BP 115/72
--- NOTE | 2017-09-14 11:10 | Discharge Summary ---
Date of Encounter: 09/14/17 Time of Encounter: 10:30 - Discharge Diagnosis (1) Upper GI bleed Priority: Primary Status: Acute (2) H. pylori duodenitis Priority: Primary Status: Acute (3) Gastritis due to bacteria Priority: Primary Status: Acute (4) Anemia Priority: Primary Status: Acute Qualifiers: Anemia type: unspecified type Qualified Code(s): D64.9 - Anemia, unspecified (5) Near syncope Priority: Primary Status: Resolved - Discharge Medications Prescriptions: Amoxicillin [Amoxil] 1,000 mg PO BID 12 Days capsule Clarithromycin [Biaxin] 500 mg PO BID 12 Days tablet metroNIDAZOLE [Flagyl] 500 mg PO TID 12 Days tablet Pantoprazole Sodium [Protonix] 40 mg PO BID #60 tablet. Sucralfate [Carafate] 1 gm PO QIDAC #120 tablet Home Medications: Venlafaxine XR (24 HR) [Effexor XR] 225 mg PO DAILY 06/22/17 [History] Amoxicillin [Amoxil] 1,000 mg PO BID 12 Days capsule 09/14/17 [Rx] Clarithromycin [Biaxin] 500 mg PO BID 12 Days tablet 09/14/17 [Rx] Pantoprazole Sodium [Protonix] 40 mg PO BID #60 tablet. 09/14/17 [Rx] Sucralfate [Carafate] 1 gm PO QIDAC #120 tablet 09/14/17 [Rx] metroNIDAZOLE [Flagyl] 500 mg PO TID 12 Days tablet 09/14/17 [Rx] Allergies/Adverse Reactions: 3 Allergy/AdvReac Type Severity Reaction Status Date / Time No Known Allergies Allergy Verified 09/11/17 22:00 Procedures/tests Complete & Pending: Procedures Performed prior 72 hours Category Date Time Status ECG 12 lead ECG [ECG] Routine Y 09/13/17 20:40 Completed Date of admission: 09/13/17 12:52 Primary care physician: PCP NONE - Patient Status Disposition: Home, Self-Care Condition: Good Overall status at discharge: patient is back to baseline - Discharge Instructions Follow Up With: Luly Kolb DO [Resident] - Rashaun Dudley DO [Partnered Physician] - - Diet and Activity Activity: increase activity as tolerated Diet: other (soft / bland diet) Hospital course: Mr. Garcia is a 27 year old male who presents to the ER [facility] with complaints of near syncope and several bouts of melena. Patient was just hospitalized a few days ago here at [place] for upper GI bleed. He underwent EGD which found patient to have evidence of gastritis and duodenitis but no actual bleeding ulcer. He was admitted in the hospital and started him on PPI gtt. His previous biopsy results came back as positive for H. Pylori. So started him on quadruple therapy with Amoxicyllin, Clarihtromycin, Flagyl, and Protonix. Pt was seen by Dr. Dudley and did EGD y/d showed new gastric ulcer. So continued PPI gtt for another day. Now he is tolerating liquid diet well, so advanced his diet. His hb stayed stable @ 8.0. Pt would like to go home today, so will d/c him home in stale condition and recommend to f/u with PCP and Dr. Dudley in 1-2 weeks - Time Spent with Patient Total time spent providing and/or coordinating discharge services: - Constitutional Vitals: Temp Pulse Resp BP Pulse Ox 97.6 F 96 16 117/76 97 09/14/17 07:04 09/14/17 07:04 09/14/17 07:04 09/14/17 07:04 09/14/17 07:04 General appearance: Present: A&O X 3, pleasant, no acute distress - Head Head exam: Present: atraumatic, normal inspection - Respiratory Respiratory exam: Present: CTAB. Absent: accessory muscle use, rales, rhonchi, wheezes - Cardiovascular Cardiovascular exam: Present: RRR, +S1, +S2. Absent: diastolic murmur, gallop, rubs, systolic murmur - Extremities Exam Extremities exam: Absent: calf tenderness, pedal edema, tenderness - Back Exam Back exam: Absent: CVA tenderness (L), CVA tenderness (R) - Neurological Exam Neurological exam: Present: alert, oriented X3 - Psychiatric Psychiatric exam: Present: normal affect, normal mood - Skin Skin exam: Absent: rash
--- NOTE | 2017-09-14 15:55 | Electrocardiograph Report ---
[address] [address] Test Date: 2017-09-11 Pat Name: Ozzie Garcia Department: 102 Room: 3A46 Gender: M Skin Care Technician: Brandt : 1990 Requested By: Farzana Mccann Order Number: [id number] Reading MD: Louis Marcos Measurements Intervals [place] Rate: 86 P: 23 OR: 104 QRS: 36 QRSD: 121 T: 52 QT: 344 QTc: 388 Interpretive Statements SINUS RHYTHM MODERATE INTRAVENTRICULAR CONDUCTION DELAY Electronically Signed On 09-14-2017 15:53:44 EST by Louis Marcos
--- NOTE | 2017-09-14 17:39 | Electrocardiograph Report ---
[place] [address] Test Date: 2017-09-13 Pat Name: Ozzie Garcia Department: 115 Room: 3A46 Gender: M Painting Contractor: CT : 1990 Requested By: Karena Mortensen Order Number: [id number] Reading MD: Jose A Smith DO Measurements Intervals [place] Rate: 116 P: 50 NM: 153 QRS: 38 QRSD: 126 T: 45 QT: 338 QTc: 407 Interpretive Statements Sinus tachycardia Intraventricular conduction delay Electronically Signed On 09-14-2017 17:01:58 EST by Jose A Smith DO
== END 2017-09-14 12:25 | disposition home or self-care (01) | DRG 241 ==
LOC: EMEROO 21:11 → 3ANU 21:11
PROVIDERS: ADMIT Pediatrics; ATTEND Family Medicine